=== PATIENT | male | born 1965 | race Caucasian/White ===

== ENCOUNTER 2019-01-07 16:05 | Inpatient (IN) | payer OTHER ==
[~2019-01-07] VITALS: Ht 193 cm; Wt 110.7 kg
--- OUTSIDE RECORDS SUMMARY | 2019-01-07 16:07 | XMS REPORT ---
Author Author [facility] Address Unknown Phone Unavailable Care Team Providers Care Maintenance Technician Name Role Phone ABEL CHAVIRA Unavailable Unavailable Payers Payer Name Policy Type Policy Number Effective Date Expiration Date Problems This patient has no known problems. Allergies, Adverse Reactions, Alerts Allergy Name Allergy Type Status Severity Reaction(s) Onset Date Inactive Date Treating Clinician Comments .BUFFERINE DA Active U 2017-11-24 00:00:00 .BUFFERINE DA Active U 2007-10-22 00:00:00 No Known Contrast Allergies DA Active U 2007-10-22 00:00:00 No Known Food Allergies DA Active U 2007-10-22 00:00:00 No Known Other Allergies DA Active U 2007-10-22 00:00:00 Medications This patient has no known medications. Results Test Description Test Time Test Comments Text Results Atomic Results Result Comments WRIST LEFT 2 VIEWS 2019-01-07 10:51:00 [facility] [address] [address] Patient Name: NISH CAZARES MR #: [id number] : 1965 Age/Sex: 53/M Req #: [id number] Adm Physician: Ordered by: ABEL CHAVIRA MD Report #: [id number] Location: [facility] Room/Bed: Procedure: [id number] DX/WRIST LEFT 2 VIEWS Exam Date: 01/07/19 Exam Time: 1015 REPORT STATUS: Signed EXAMINATION: WRIST LEFT 2 VIEWS INDICATION: Left wr ist sprain COMPARISON: None FINDINGS: No acute fracture. There is widening of the scapholunate interval to 5.3 mm. Alignment is otherwise anatomic. The soft tissues appear unremarkable. IMPRESSION: Scapholunate interval widening to 5.3 mm, consistent with scapholunate dissociation. Signed by: Luma Baeza MD on 01/07/2019 10:53 AM Dictated By: LUMA BAEZA MD 1053 Transcribed By: MICHAEL on 01/07/19 1053 COPY TO: ABEL CHAVIRA MD - XR SACRUM/COCCYX 2 + V 2019-01-03 13:38:00 Name: NISH CAZARES [facility] : 1965 Age/S:53 /M [address] [facility] Unit#:[id number] Loc: [place] [address] Phys: Jasen Chapa MD Dis Date: PHONE #: [phone] Status: REG FAX #: [phone] Exam Date: 01/03/2019 Reason: pain EXAMS: CPT CODE: [id number] XR SACRUM/COCCYX 2 + V [id number] REASON FOR EXAM: pain EXAM ORDER DATE: 01/03/2019 12:55 PM Ordering: Jasen Chapa MD Attending:Jasen Chapa MD Location: PROCEDURE: - XR SACRUM/COCCYX 2 + V FINDINGS: 3 views of the sacrum and coccyx were obtained. The osseous structures are unremarkable in size and shape. The sacroiliac joints are maintained. No evidence of fracture. IMPRESSION: Unremarkable sacrum and coccyx at 1338 Reported and signed by: Randall Samson M.D. CC: Juan Carlos Zambrano MD; Jasen Chapa MD Technologist: Nam HARLEY(R) Trnscrpt Data: 01/03/2019 (1338) t.[email or web address].VTL Orig Print D/T: S: 01/03/2019 (1601) PAGE 1 Signed Report - XR L-SPINE 2/3 VIEWS 2019-01-03 13:37:00 Name: NISH CAZARES [facility] : 1965 Age/S:53 /M [address] [facility] Unit#:[id number] Loc: [place] [address] Phys: Jasen Chapa MD Dis Date: PHONE #: [phone] Status: REG ER FAX #: [phone] Exam Date: 01/03/2019 Reason: pain EXAMS: CPT CODE: [id number] XR L-SPINE 2/3 VIEWS 19926 REASON FOR EXAM: pain EXAM ORDER DATE: 01/03/2019 12:55 PM Ordering: Jasen Chapa MD Attending:Jasen Chapa MD Location: PROCEDURE: - XR L-SPINE 2/3 VIEWS FINDINGS: 3 views of the lumbar spine were obtained. There is normal alignment of the lumbar spine. The vertebral bodies are unremarkable in size and shape. The disc spaces are maintained. No evidence of fracture. IMPRESSION: Unremarkable lumbar spine at 1337 Reported and signed by: Randall Samson M.D. CC: Juan Carlos Zambrano MD; Jasen Chapa MD Technologist: Nam HARLEY(R) Trnscrpt Data: 01/03/2019 (1337) [email or web address].VTL Orig Print D/T: S: 01/03/2019 (0088) PAGE 1 Signed Report
[2019-01-07] MEDS ORDERED: SODIUM CHLORIDE 0.9% 1000ML 1,000 ML IV SCH (16:30)
[2019-01-07] MEDS ORDERED: PIPER-TAZ 3.375 GM 50 ML ONE (16:37)
[2019-01-07] MEDS ORDERED: SODIUM CHLORIDE 0.9% 1000ML 1,000 ML ONE ×2 (16:37→19:16)
[2019-01-07] MEDS ORDERED: IOPAMIDOL 370 MG/ML 200 ML INFUS..BTL INJ ONE (16:40)
[2019-01-07] MEDS ORDERED: SODIUM CHLORIDE 0.9% 50ML 50 ML ONE (16:40)
[2019-01-07] MEDS: PIPER-TAZ 3.375 GM 50 ML IV SCH ×2 (16:43→22:30)
[2019-01-07] MEDS ORDERED: MORPHINE SULFATE 2 MG/ML SYR 1ML IV PRN (17:00)
[2019-01-07] MEDS ORDERED: MORPHINE SULFATE INJ 4 MG/ML INJ 1ML IV PRN (17:00)
--- NOTE | 2019-01-07 18:15 | Diagnostic Imaging Report ---
EXAM: FOOT 3 VIEW LT - HOPD DATE: 01/07/2019 12:00 AM INDICATION: Cellulitis, swelling ^[id number] ^1733 COMPARISON: None FINDINGS: 3 views of the left foot show no displaced fracture or dislocation. No destructive lesion or bony erosion is seen. There is apparent mild soft tissue swelling about the foot. A plantar calcaneal bone spur is seen. IMPRESSION: No acute bony abnormality. Signed by: Dr. Julien Davis M.D. on 01/07/2019 6:12 PM
--- NOTE | 2019-01-07 18:31 | Diagnostic Imaging Report ---
EXAM: CT Abdomen and Pelvis WITH contrast INDICATION: Burn to buttocks, fever ^[id number] ^1735 COMPARISON: None. TECHNIQUE: Abdomen and pelvis were scanned utilizing a multidetector helical scanner from the lung base to the pubic symphysis after administration of IV contrast. Coronal and sagittal reformations were obtained. Routine protocol was performed. Scan was performed when during portal venous phase. Dose modulation, iterative reconstruction, and/or weight based adjustment of the mA/kV was utilized to reduce the radiation dose to as low as reasonably achievable. IV CONTRAST: 100 mL of Isovue-370 ORAL CONTRAST: None RADIATION DOSE: Total DLP: 886.32 mGy*cm Estimated effective dose: (DLP x 0.015 x size factor) mSv COMPLICATIONS: None FINDINGS: LINES and TUBES: None. LOWER THORAX: Lung bases clear. Heart size normal. HEPATOBILIARY: Liver is partially obscured by artifact produced by the right arm at the patient's side. No focal hepatic lesions. No biliary ductal dilation. GALLBLADDER: No radio-opaque stones or sludge. No wall thickening. SPLEEN: No splenomegaly. PANCREAS: No focal masses or ductal dilatation. ADRENALS: No adrenal nodules KIDNEYS/URETERS: Kidneys enhance symmetrically. No hydronephrosis. No cystic or solid mass lesions. No stones. GI TRACT: No abnormal distention, wall thickening, or evidence of bowel obstruction. There is a moderately large volume of retained stool throughout the colon which, while nonspecific, may be seen with constipation. The appendix is not well seen but there is no evidence for right lower quadrant inflammatory change to suggest appendicitis. PELVIC ORGANS/BLADDER: Urinary bladder has an unremarkable appearance. The prostate is prominent measuring 6.7 cm diameter. No discrete abnormal mass or fluid collection is seen in the pelvis. LYMPH NODES: No dominant lymph node mass is seen in the abdomen, retroperitoneum or pelvis. There is a mildly prominent 1.1 cm left para-aortic node (image 59) and another 1.2 cm left para-aortic node (image 48). There are additional scattered subcentimeter nodes in the para-aortic area and in the mesentery. VESSELS: No aneurysm or dissection of the abdominal aorta. There is a likely accessory renal artery on the right. Celiac, SMA and MELVA are patent. IVC and portal system appear unremarkable. PERITONEUM / RETROPERITONEUM: No pneumoperitoneum or ascites. There is haziness in the central mesentery which more likely represents artifact from the adjacent arm rather than mesenteric edema. BONES: No acute or suspicious bony lesions. There are degenerative changes in the lumbar spine with osteophytes and disc space narrowing at several levels. SOFT TISSUES: Superficial surrounding soft tissue shows extensive subcutaneous edema in the left gluteal area. There are ill-defined lucencies in the adjacent gluteus mazin musculature (image 103). IMPRESSION: 1. There is subcutaneous stranding and edema in the left gluteal area. Ill-defined lucencies are seen in the adjacent gluteus mazin musculature which also appears edematous. Potentially this may represent thermal injury based on history provided, although lucencies in the musculature may also represent phlegmonous infection in the proper clinical setting. A discrete or well-defined drainable fluid collection is not seen. 2. Mildly prominent para-aortic and mesenteric lymph nodes which may be reactive. Correlation with history for underlying related pathology is also suggested. 3. Enlargement of the prostate. Staff: Ryan Signed by: Dr. Julien Davis M.D. on 01/07/2019 6:28 PM
--- NOTE | 2019-01-07 18:44 | NUR ---
[facility] CALLED FOR PT. TRANSPORT TO [facility]
[2019-01-07] MEDS ORDERED: VANCOMYCIN 1GM/NS 250 ML 250 ML ONE (19:16)
[2019-01-07 19:46] VITALS: BP 125/55
--- NOTE | 2019-01-07 19:50 | NUR ---
Patient was brought from free standing Er in a stretcher with c/o left foot& knee red, swollen and warm.aaox3.assessment done.no resp.distress.iv to left ac is patent.iv fluid infusing.oriented to the unit.bed locked and in lowest position.phone and call light within reach.instructed to call for assistance as needed.
[2019-01-07 20:00] VITALS: BP 125/55
[2019-01-07] MEDS: SODIUM CHLORIDE 0.9% 1000ML 1,000 ML IV SCH (20:15)
[2019-01-07] MEDS: VANCOMYCIN 1GM/NS 250 ML 250 ML IV SCH (20:15)
[2019-01-07 20:43] VITALS: BP 125/55
[2019-01-08] VITALS (8 sets, daily range): BP systolic 102–140; BP diastolic 58–67
--- NOTE | 2019-01-08 01:00 | NUR ---
Pt refused to draw blood right now.stated that "draw later ".voided in the bed.took shower.keep monitor the pt.
[2019-01-08] MEDS: SODIUM CHLORIDE 0.9% 1000ML 1,000 ML IV SCH ×3 (04:29→20:56)
[2019-01-08] MEDS: PIPER-TAZ 3.375 GM 50 ML IV SCH ×4 (05:47→17:00)
[2019-01-08 06:10] LABS: BASOPHILS % 0.2 % (0.0-1.0); EOSINOPHILS # (AUTO) 0.2 (0.0-0.4); HEMATOCRIT 26.9 % (38.2-49.6); HEMOGLOBIN 9.1 g/dL (14.0-18.0); LYMPHOCYTES # (AUTO) 0.9 (1.0-3.2); LYMPHOCYTES % 5.7 % (18.0-39.1); MEAN CORPUSCULAR HEMOGLOBIN 27.2 pg (28-32); MEAN CORPUSCULAR HGB CONC 33.8 g/dL (31-35); MEAN CORPUSCULAR VOLUME 80.3 fL (81-99); MONOCYTES # (AUTO) 0.7 (0.2-0.8); MONOCYTES % 4.4 % (4.4-11.3); NEUTROPHILS # (AUTO) 13.8 (2.1-6.9); NEUTROPHILS % 84.4 % (38.7-80.0); PLATELET COUNT 307 x10e3/uL (140-360); RED BLOOD COUNT 3.35 x10e6/uL (4.3-5.7); RED CELL DISTRIBUTION WIDTH 17.1 % (11.7-14.4)
[2019-01-08 06:33] LABS: ANION GAP 12.6 mmol/L (8-16); BLOOD UREA NITROGEN 27 mg/dL (7-26); BUN/CREATININE RATIO 22 (6-25); CALCIUM 7.9 mg/dL (8.4-10.2); CARBON DIOXIDE 26 mmol/L (22-29); CHLORIDE 99 mmol/L (98-107); CREATININE, SERUM 1.24 mg/dL (0.72-1.25); EST GLOMERULAR FILTRATION RATE > 60 ML/MIN (60-); GLUCOSE 96 mg/dL (74-118); POTASSIUM 3.6 mmol/L (3.5-5.1); SODIUM 134 mmol/L (136-145)
--- NOTE | 2019-01-08 06:50 | NUR ---
Bed side shift report given to the oncoming Rn.stable condition.
--- NOTE | 2019-01-08 06:50 | NUR ---
BEDSIDE SHIFT REPORT RECEIVED FROM OFF GOING NURSE. PATIENT IS RESTING IN BED. NO ACUTE DISTRESS NOTED. CALL LIGHT WITHIN REACH. BED IN THE LOWEST POSITION.
[2019-01-08] MEDS ORDERED: ACETAMINOPHEN 325 MG TAB PO PRN (07:00)
[2019-01-08] MEDS: VANCOMYCIN 1GM/NS 250 ML 250 ML IV SCH ×2 (08:07→20:21)
--- NOTE | 2019-01-08 11:40 | History and Physical ---
CHIEF COMPLAINT: Fever, chills, and sweats. HISTORY OF PRESENT ILLNESS: This is a 53-year-old white man, who recently was diagnosed with left buttock cellulitis. The patient apparently inadvertently burnt his left buttock area with a heating pad a few days prior to admission. The patient was seen in his primary care physician's office one day prior to admission and was diagnosed as left buttock cellulitis, and during that visit, he was administered 1 g of ceftriaxone and started on oral Keflex. On the day of admission, the patient was diaphoretic and was experiencing shaking chills. In the emergency room on this visit, the patient was found to have white blood cell count of 19,800. His BUN and creatinine were slightly elevated at 24 and 1.5 respectively. The patient underwent a CT of the abdomen and pelvis that revealed subcutaneous stranding edema in the left gluteal area consistent with cellulitis, but no obvious well-defined drainable fluid collection, such as an abscess was appreciated. The patient was admitted for further evaluation and treatment. REVIEW OF SYSTEMS: GENERAL: Fever and chills last few days. Weight is stable. No confusion. HEENT: No headaches. No vision changes. CARDIOVASCULAR/RESPIRATORY: No chest pain. No shortness of breath or cough. GI: No nausea, vomiting, or constipation. : No UTI or BPH. NEUROMUSCULAR: Complains of intense pain in his left buttock, left foot, and left wrist area. PAST MEDICAL HISTORY: Speech impediment with mild developmental delay. FAMILY HISTORY: Father had congestive heart failure and dementia. ALLERGIES: BUFFERIN. MEDICATIONS: 1. Keflex 500 mg t.i.d. (the patient to start taking his medication). 2. Silvadene cream applied to the left buttock burn area twice a day (the patient to start taking his medication). PAST SURGICAL HISTORY: None. SOCIAL HISTORY: This man is single. He lives in apartment alone according to his mother. He works at a local grocery store. Once again, the patient has a speech impediment with some developmental delay. No history of tobacco or alcohol use. PHYSICAL EXAMINATION: GENERAL: He is awake, alert, and fully oriented. He is very pleasant on exam. VITAL SIGNS: Height 6 feet 4 inches, weight is 220 pounds, BMI 26. Blood pressure is 102/58, pulse is 95, respiratory rate is 18, temperature is 97.9, oxygen 93% on room air. INTEGUMENT: Skin is warm and dry. No pallor, jaundice, or diaphoresis. The patient has a second-degree burn in the left inner buttock area inside the gluteal cleft. He has surrounding erythema that in covers the left gluteal area. The patient also has erythema in the bilateral patellar area. Left foot, the left foot is also swollen and erythematous. The left wrist is also swollen, tender with limited range of motion (the patient apparently was found to have dislocated left wrist confirmed by outpatient x-rays). NEUROLOGIC: Intact. DIAGNOSES: 1. Sepsis secondary to left buttock cellulitis. 2. Acute renal insufficiency secondary to acute tubular necrosis. 3. Left wrist dislocation. PLAN: 1. Follow blood cultures. 2. Intravenous fluids. 3. Intravenous antibiotics. 4. Follow white blood cell count. 5. We will start enoxaparin for deep venous thrombosis prophylaxis. 6. The patient will follow up with local orthopedic surgeon in regard to his left wrist dislocation. I spent 45 minutes in the care of this patient. MD LIBIA Lewis/OFELIA /[id number]
--- NOTE | 2019-01-08 13:37 | Consultation ---
DATE OF CONSULTATION: 01/08/2019 CHIEF COMPLAINT: Left wrist pain. HISTORY OF PRESENT ILLNESS: The patient is a 53-year-old gentleman, who states of about 3 or 4 weeks ago, he strained his left wrist at work. He states a milk container fell and he tried to catch it. It either hit or twisted his wrist. He noted some pain in his wrist. He did not have any pain prior to this incident. He states that the pain started about a week after the incident. He was seen earlier this week and had some outpatient x-rays done. He coincidentally developed some cellulitis in his foot and gluteal region that required admission to the hospital. Orthopedic consultation regarding his wrist was requested while he is here in the hospital. PAST MEDICAL HISTORY: The patient denies medical problems. PAST SURGICAL HISTORY: He denies he has ever had surgery. ALLERGIES: BUFFERIN AND ASPIRIN, WHICH CAUSES GI DISCOMFORT. MEDICATIONS: The patient cannot state exactly what medicines he takes, but he says he takes a couple tablets. 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 He is single and has no children. He does not smoke, but he socially drinks. When asked what he does for fun, he says watch TV. PHYSICAL EXAMINATION: GENERAL: He is awake, alert, and oriented. He is in no distress. EXTREMITIES: His left wrist and hand are mildly swollen. There is tenderness over the wrist. He has normal sensation. Capillary refill is normal. He has decreased range of motion in the wrist with some discomfort. He can make a complete clenched fist. LABORATORY STUDIES: X-rays show a scapholunate dissociation. IMPRESSION: Scapholunate dissociation of the left wrist. The findings were explained to the patient. This is approximately 3 or 4 weeks old. This also occurred at work. This is typically treated with surgery by dedicated hand specialist. The patient will need to get over the cellulitis and returned to the [employer] in order to file a workmen's compensation claim. Once that is done, he can get incorporated into their network to see a dedicated hand specialist. This is a type of injury that is outside my area of orthopedic expertise. I offered to place him into a splint for comfort. He says it does not bother him enough to justify putting it in a splint. Thank you for the consultation. Daniel Benedict MD DR/OFELIA /[id number]
[2019-01-08] MEDS: ENOXAPARIN SOD INJ 40 MG/0.4 ML SYR SC SCH (17:00)
--- NOTE | 2019-01-08 19:10 | NUR ---
BEDSIDE SHIFT REPORT GIVEN TO ONCOMING NURSE. PATIENT IS RESTING IN BED. NO ACUTE DISTRESS NOTED. CALL LIGHT WITHIN REACH. BED IN THE LOWEST POSITION. BED ALARM ON.
--- NOTE | 2019-01-08 19:15 | NUR ---
Bed side shift report taken from morning Elena in the bed.stable condition.
[2019-01-08] MEDS: ZOLPIDEM TARTRATE 10 MG TAB PO PRN (22:22)
[2019-01-09] VITALS (7 sets, daily range): BP systolic 116–163; BP diastolic 52–78
[2019-01-09] MEDS: PIPER-TAZ 3.375 GM 50 ML IV SCH ×4 (00:12→18:00)
--- NOTE | 2019-01-09 02:43 | NUR ---
Resting in the bed.no pain voiced.iv fluid infusing.no resp.distress.foot end of bed is elevated.bed locked and in lowest position.phone and call light within reach.instructed to call for assistance as needed.
[2019-01-09] MEDS: SODIUM CHLORIDE 0.9% 1000ML 1,000 ML IV SCH (04:18)
[2019-01-09 06:53] LABS: BASOPHILS # (AUTO) 0.1 (0.0-0.1); BASOPHILS % 0.3 % (0.0-1.0); EOSINOPHILS # (AUTO) 0.1 (0.0-0.4); HEMATOCRIT 28.2 % (38.2-49.6); LYMPHOCYTES % 6.8 % (18.0-39.1); MEAN CORPUSCULAR HEMOGLOBIN 26.4 pg (28-32); MEAN CORPUSCULAR HGB CONC 31.9 g/dL (31-35); MEAN CORPUSCULAR VOLUME 82.7 fL (81-99); MONOCYTES # (AUTO) 0.9 (0.2-0.8); MONOCYTES % 5.9 % (4.4-11.3); NEUTROPHILS # (AUTO) 11.8 (2.1-6.9); NEUTROPHILS % 81.4 % (38.7-80.0); PLATELET COUNT 345 x10e3/uL (140-360); RED BLOOD COUNT 3.41 x10e6/uL (4.3-5.7); RED CELL DISTRIBUTION WIDTH 17.3 % (11.7-14.4)
--- NOTE | 2019-01-09 06:55 | NUR ---
Bed side shift report given to oncoming Rn.stable condition.
[2019-01-09 07:15] LABS: ALANINE AMINOTRANSFERASE 192 IU/L (0-55); ALBUMIN 1.3 g/dL (3.5-5.0); ALBUMIN/GLOBULIN RATIO 0.3 (0.8-2.0); ALKALINE PHOSPHATASE 193 IU/L (40-150); BLOOD UREA NITROGEN 19 mg/dL (7-26); BUN/CREATININE RATIO 19 (6-25); CALCIUM 7.8 mg/dL (8.4-10.2); CARBON DIOXIDE 29 mmol/L (22-29); CHLORIDE 101 mmol/L (98-107); CREATININE, SERUM 0.99 mg/dL (0.72-1.25); EST GLOMERULAR FILTRATION RATE > 60 ML/MIN (60-); GLUCOSE 98 mg/dL (74-118); SODIUM 137 mmol/L (136-145)
--- NOTE | 2019-01-09 07:30 | NUR ---
PT UP IN BED SLEEPING,NO S/S DISCOMFORT,REDNESS NOTED TO BI-LATERAL KNEES.
[2019-01-09 08:09] LABS: BAND NEUTROPHILS % (MANUAL) 2 %; EOSINOPHILS % (MANUAL) 1 % (0-7); LYMPHOCYTES % (MANUAL) 8 % (19-48); MONOCYTES % (MANUAL) 6 % (3.4-9.0); NEUTROPHILS % (MANUAL) 83 % (40-74)
[2019-01-09 08:10] LABS: ANISOCYTOSIS SLIGHT; MICROCYTOSIS SLIGHT; POIKILOCYTOSIS SLIGHT
[2019-01-09 08:11] LABS: PLATELET ESTIMATE ADEQUATE; RBC MORPHOLOGY COMMENT ABNORMAL; TEAR DROP CELLS FEW
[2019-01-09 08:12] LABS: PLATELET MORPHOLOGY COMMENT NORMAL
[2019-01-09] MEDS: VANCOMYCIN 1GM/NS 250 ML 250 ML IV SCH ×2 (08:23→19:48)
--- NOTE | 2019-01-09 08:30 | NUR ---
DR CHAVIRA HERE ODRES WRITEN
--- NOTE | 2019-01-09 12:14 | Diagnostic Imaging Report ---
EXAM: Right upper quadrant abdominal ultrasound INDICATION: Elevated liver enzymes COMPARISON: CT abdomen and pelvis of 01/07/2019 TECHNIQUE: Transverse and longitudinal images of the right upper quadrant abdomen were obtained FINDINGS: Liver: Size: 17.3 cm in the right midclavicular line, normal Appearance: Normal echogenicity, smooth contour Mass: No focal masses Gallbladder: No gallbladder distension, pericholecystic fluid, wall thickening, stone, or reported sonographic Agosto's sign. Gallbladder wall measures 2 mm Bile Ducts: Intrahepatic Ducts: No dilatation Extrahepatic Ducts: Common bile duct measures 4 mm, no dilatation Pancreas: Visualized portions of the pancreatic head, neck and proximal body are normal. Kidney: The right kidney measures 11.1 cm without evidence of hydronephrosis or stone. Vessels: Aorta: Visualized portions are normal Inferior Vena Cava: Visualized portions are normal Main Portal Vein: 1.0 cm, normal size with hepatopetal flow. Free Fluid: No ascites or pleural effusion IMPRESSION: Unremarkable right upper quadrant ultrasound. Signed by: Aleida Dixon MD on 01/09/2019 12:11 PM
--- NOTE | 2019-01-09 13:00 | NUR ---
PT ASSITED UP TO CHAIR TOLERATED WELL UNSTEADY GAIT.
[2019-01-09] MEDS: ACETAMINOPHEN 325 MG TAB PO PRN (16:00)
--- NOTE | 2019-01-09 16:00 | NUR ---
TEMP 101.7 MEDICATED.
[2019-01-09] MEDS: ENOXAPARIN SOD INJ 40 MG/0.4 ML SYR SC SCH (17:00)
--- NOTE | 2019-01-09 17:54 | NUR ---
PT IN BED RRSTING DENIES PAIN ,TEMP 100.6
--- NOTE | 2019-01-09 19:04 | NUR ---
Received change of shift report from AM nurse.
[2019-01-09] MEDS: HYDROMORPHONE 1MG/1ML INJ IV PRN (21:49)
[2019-01-09] MEDS: ONDANSETRON HCL INJ 2MG/ML 2ML 2 MG/ML VIAL IV PRN (21:50)
--- NOTE | 2019-01-09 22:03 | NUR ---
Patient c/o pain -5-6. Given pain meds as ordered by MD. Patient also received nausea meds. Continue monitor.
--- NOTE | 2019-01-09 22:07 | NUR ---
Bed alarm on and siderails up x2.
[2019-01-10] VITALS (7 sets, daily range): BP systolic 118–145; BP diastolic 57–69
--- NOTE | 2019-01-10 05:30 | NUR ---
Patient resting quitly at this time. Continue monitor.
[2019-01-10] MEDS: PIPER-TAZ 3.375 GM 50 ML IV SCH ×4 (05:37→18:00)
[2019-01-10 05:54] LABS: BASOPHILS % 0.3 % (0.0-1.0); EOSINOPHILS # (AUTO) 0.1 (0.0-0.4); EOSINOPHILS % 0.6 % (0.0-6.0); HEMATOCRIT 27.3 % (38.2-49.6); HEMOGLOBIN 8.9 g/dL (14.0-18.0); LYMPHOCYTES # (AUTO) 0.8 (1.0-3.2); LYMPHOCYTES % 5.5 % (18.0-39.1); MEAN CORPUSCULAR HEMOGLOBIN 27.1 pg (28-32); MEAN CORPUSCULAR HGB CONC 32.6 g/dL (31-35); MONOCYTES # (AUTO) 0.7 (0.2-0.8); MONOCYTES % 5.3 % (4.4-11.3); NEUTROPHILS % 85.4 % (38.7-80.0); PLATELET COUNT 362 x10e3/uL (140-360); RED BLOOD COUNT 3.29 x10e6/uL (4.3-5.7); RED CELL DISTRIBUTION WIDTH 17.2 % (11.7-14.4)
[2019-01-10 06:18] LABS: ALANINE AMINOTRANSFERASE 181 IU/L (0-55); ALBUMIN 1.3 g/dL (3.5-5.0); ALBUMIN/GLOBULIN RATIO 0.3 (0.8-2.0); ALKALINE PHOSPHATASE 191 IU/L (40-150); ANION GAP 12.2 mmol/L (8-16); BLOOD UREA NITROGEN 15 mg/dL (7-26); BUN/CREATININE RATIO 17 (6-25); CALCIUM 7.8 mg/dL (8.4-10.2); CARBON DIOXIDE 26 mmol/L (22-29); CHLORIDE 102 mmol/L (98-107); CREATININE, SERUM 0.89 mg/dL (0.72-1.25); EST GLOMERULAR FILTRATION RATE > 60 ML/MIN (60-); GLUCOSE 104 mg/dL (74-118); POTASSIUM 4.2 mmol/L (3.5-5.1); SODIUM 136 mmol/L (136-145)
--- NOTE | 2019-01-10 07:30 | NUR ---
PT UP IN BED NO DISTRESS NOTED,DENIES PAIN
[2019-01-10] MEDS: VANCOMYCIN 1GM/NS 250 ML 250 ML IV SCH ×2 (08:30→20:55)
--- NOTE | 2019-01-10 08:30 | NUR ---
PT ASSISTED UP TO CHAIR MIN ASSIST,
--- NOTE | 2019-01-10 09:15 | NUR ---
PT ASSISTED BACK TO BED.
[2019-01-10] MEDS: HYDROMORPHONE 1MG/1ML INJ IV PRN ×2 (11:51→22:23)
[2019-01-10 13:22] LABS: BAND NEUTROPHILS % (MANUAL) 6 %
[2019-01-10 13:23] LABS: LYMPHOCYTES % (MANUAL) 5 % (19-48); MONOCYTES % (MANUAL) 5 % (3.4-9.0); NEUTROPHILS % (MANUAL) 84 % (40-74); PLATELET ESTIMATE SLIGHTLY INCREASED; PLATELET MORPHOLOGY COMMENT NORMAL
[2019-01-10 13:24] LABS: RBC MORPHOLOGY COMMENT NORMAL
[2019-01-10] MEDS: ACETAMINOPHEN 325 MG TAB PO PRN (16:03)
[2019-01-10] MEDS: BALSAM PERU/CASTOR OIL 60 GM OINT...G. TP SCH (17:00)
[2019-01-10] MEDS: ENOXAPARIN SOD INJ 40 MG/0.4 ML SYR SC SCH (17:00)
--- NOTE | 2019-01-10 17:40 | NUR ---
DR HAYWOOD HERE ORDERS WRITTEN ,PT DENIES PAIN.
--- NOTE | 2019-01-10 20:23 | NUR ---
Received change of shift report from nurse.
--- NOTE | 2019-01-10 22:11 | NUR ---
Patient off the floor to CT via bed.
[2019-01-10] MEDS: ONDANSETRON HCL INJ 2MG/ML 2ML 2 MG/ML VIAL IV PRN (22:23)
--- NOTE | 2019-01-10 23:07 | Consultation ---
DATE OF CONSULTATION: 01/10/2019 REASON FOR CONSULTATION: 1. Staph aureus bacteremia. 2. Multiple joint inflammation. HISTORY OF PRESENT ILLNESS: This patient who is a 53-year-old white male, comes in according to his mother, who he lives with. She said that 10 days ago or so was trying to bend down, he had severe pain in his buttock area. He went to the doctor almost every day since then because of fever and chills. One doctor thought he was having flu. He was given some antibiotic, but now he is having redness and swelling in his left knee, redness and swelling in the right foot. He cannot move his right arm, so he came here. The patient is currently lying in bed. He is having severe pain in the buttock area. The patient had a CT of abdomen and pelvis that showed subcutaneous stranding edema of the left gluteal area consistent with cellulitis, but there is no abscess. PAST MEDICAL HISTORY: He has speech and mild developmental delay. PAST SURGICAL HISTORY: He denies. ALLERGIES: NKA. SOCIAL HISTORY: There is no smoking, drug abuse, or alcohol abuse. He works with [employer]. REVIEW OF SYSTEMS: Otherwise is unremarkable. PHYSICAL EXAMINATION: GENERAL: He is currently alert, oriented, does not seem to be in acute distress. VITAL SIGNS: Stable, currently afebrile. HEENT: He is not icteric. NECK: Supple. CHEST: Clear bilateral. HEART: S1 and S2. No murmur. ABDOMEN: Soft. Bowel sounds present. No tenderness. EXTREMITIES: There is erythema and edema involving his left foot. There is also some effusion noted in the right knee and there is tenderness in the right shoulder. LABORATORY DATA: White count on admission was 16.41, hemoglobin 9.1. Sodium 136, potassium 4.2, creatinine 0.89. PHYSICAL EXAMINATION: GENERAL: Currently alert, oriented, follows commands, does not seem to be in acute distress. VITAL SIGNS: Stable, currently afebrile when he first came at 100.7. HEENT: Normocephalic. NECK: Supple. No JVD. No lymphadenopathy. No thyromegaly. CHEST: Clear bilateral. COR: S1, S2. No S3, S4, or murmur. ABDOMEN: Soft. IMPRESSION: 1. Sepsis, on admission. 2. Staphylococcus aureus bacteremia, rule out endocarditis. 3. Rule out infection with multiple septic emboli. 4. Inflammation of the left knee. Concerned about infection or inflammation of the right shoulder severe pain. Concerned about spinal inflammation from the buttock cellulitis. RECOMMENDATIONS: We will continue vancomycin. We will increase to 1.5 q.12. Can discontinue Zosyn. Obtain echocardiogram. Initially, I am told this is negative for endocarditis. Recheck blood cultures. Obtain sedimentation rate and C-reactive protein. Would need extended course of IV antibiotic. Recommend MRI of the spinal area, CT of abdomen and pelvis, CT of the buttock area, MRI of the left foot, MRI of the right knee, MRI of the right shoulder. Discussed with Internal Medicine. Discussed with family. He would need a PICC line and long-term antibiotic. MD JACE Joy/OFELIA /[id number]
[2019-01-11] VITALS (7 sets, daily range): BP systolic 118–126; BP diastolic 58–63
[2019-01-11] MEDS: ONDANSETRON HCL INJ 2MG/ML 2ML 2 MG/ML VIAL IV PRN ×2 (04:48→20:13)
[2019-01-11] MEDS: HYDROMORPHONE 1MG/1ML INJ IV PRN ×3 (04:49→20:13)
[2019-01-11] MEDS: PIPER-TAZ 3.375 GM 50 ML IV SCH ×4 (05:50→18:01)
[2019-01-11] MEDS ORDERED: SODIUM CHLORIDE 0.9% 50ML 50 ML ONE (05:53)
[2019-01-11] MEDS ORDERED: IOPAMIDOL 370 MG/ML 200 ML INFUS..BTL INJ ONE (05:54)
[2019-01-11 07:11] LABS: BASOPHILS % 0.3 % (0.0-1.0); EOSINOPHILS % 0.3 % (0.0-6.0); HEMATOCRIT 28.6 % (38.2-49.6); HEMOGLOBIN 9.1 g/dL (14.0-18.0); LYMPHOCYTES # (AUTO) 0.6 (1.0-3.2); LYMPHOCYTES % 4.8 % (18.0-39.1); MEAN CORPUSCULAR HEMOGLOBIN 26.8 pg (28-32); MEAN CORPUSCULAR HGB CONC 31.8 g/dL (31-35); MEAN CORPUSCULAR VOLUME 84.1 fL (81-99); MONOCYTES # (AUTO) 0.7 (0.2-0.8); MONOCYTES % 5.1 % (4.4-11.3); NEUTROPHILS # (AUTO) 11.7 (2.1-6.9); NEUTROPHILS % 87.1 % (38.7-80.0); PLATELET COUNT 366 x10e3/uL (140-360); RED CELL DISTRIBUTION WIDTH 17.2 % (11.7-14.4)
--- NOTE | 2019-01-11 07:28 | Diagnostic Imaging Report ---
EXAM: CT Abdomen and Pelvis WITH contrast CT Sacrum/Coccyx WITH contrast INDICATION: Infection, abscess, swelling, pain COMPARISON: None. TECHNIQUE: Abdomen and pelvis were scanned utilizing a multidetector helical scanner from the lung base to the pubic symphysis after administration of IV contrast. Coronal and sagittal reformations were obtained. Routine protocol was performed. Scan was performed when during portal venous phase. IV CONTRAST: 100 mL of Isovue 370 ORAL CONTRAST: None COMPLICATIONS: None RADIATION DOSE: Total DLP: 962 mGy*cm Estimated effective dose: (DLP x 0.015 x size factor) mSv CTDIvol has been reviewed. It is below the limits set by the Radiation Protocol Committee (RPC). Dose modulation, iterative reconstruction, and/or weight based adjustment of the mA/kV was utilized to reduce the radiation dose to as low as reasonably achievable. FINDINGS: LINES and TUBES: None. LOWER THORAX: Asymmetric right atrial enlargement. Trace pleural effusions. HEPATOBILIARY: No focal hepatic lesions. No biliary ductal dilation. GALLBLADDER: No radio-opaque stones or sludge. No wall thickening. SPLEEN: No splenomegaly. PANCREAS: No focal masses or ductal dilatation. ADRENALS: No adrenal nodules KIDNEYS/URETERS: Kidneys enhance symmetrically. No hydronephrosis. No cystic or solid mass lesions. No stones. GI TRACT: No abnormal distention, wall thickening, or evidence of bowel obstruction. Appendix is normal. PELVIC ORGANS/BLADDER: Unremarkable. LYMPH NODES: No lymphadenopathy. VESSELS: Unremarkable. PERITONEUM / RETROPERITONEUM: Multiple fluid densities in the bilateral psoas muscles, largest measures 2.3 cm. A 3 cm fluid collection inferior aspect of the right renal veins. BONES: Unremarkable. SOFT TISSUES: Focal stranding in the right lower lateral chest subcutaneous extends inferiorly to the right thigh. Subcutaneous fat stranding in the medial right proximal arm. IMPRESSION: 1. Multiple bilateral psoas and left gluteal abscesses/myositis. Prevertebral inflammation anterior to L2-L3 disc space, and small fluid collections in the upper infrarenal retroperitoneum. Recommend lumbar spine MRI with contrast. 2. Multiple scattered subcutaneous inflammatory changes. 3. Constellation of findings concerning for septic emboli possibly due to infected tricuspid valve, as there is asymmetric right atrial enlargement. 4. Trace pleural effusions. Signed by: Gray Marie DO on 01/11/2019 7:25 AM
--- NOTE | 2019-01-11 07:30 | NUR ---
PT IN BED AWAKE DENIES PAIN,BI LATERAL KNEES SWOLEN AND RED,RT ARM PAINFUL TO MOVE.
[2019-01-11 07:47] LABS: ALANINE AMINOTRANSFERASE 124 IU/L (0-55); ALBUMIN 1.3 g/dL (3.5-5.0); ALBUMIN/GLOBULIN RATIO 0.3 (0.8-2.0); ALKALINE PHOSPHATASE 162 IU/L (40-150); ANION GAP 11.5 mmol/L (8-16); BLOOD UREA NITROGEN 13 mg/dL (7-26); BUN/CREATININE RATIO 16 (6-25); CALCIUM 7.8 mg/dL (8.4-10.2); CARBON DIOXIDE 27 mmol/L (22-29); CHLORIDE 100 mmol/L (98-107); CREATININE, SERUM 0.82 mg/dL (0.72-1.25); EST GLOMERULAR FILTRATION RATE > 60 ML/MIN (60-); GLUCOSE 100 mg/dL (74-118); POTASSIUM 4.5 mmol/L (3.5-5.1); SODIUM 134 mmol/L (136-145)
[2019-01-11] MEDS: BALSAM PERU/CASTOR OIL 60 GM OINT...G. TP SCH ×2 (09:00→18:01)
[2019-01-11] MEDS: VANCOMYCIN 1GM/NS 250 ML 250 ML IV SCH ×2 (09:00→21:10)
--- NOTE | 2019-01-11 12:30 | NUR ---
DR CHUN HERE NO NEW ORDERS
--- NOTE | 2019-01-11 13:25 | NUR ---
Visit made by the Spiritual Care Department Pastoral Visitor, Juan Carlos Dia. PV provided pastoral presence, prayer, communion, hospitality, and supportive listening. Pastoral Visitor informed pt/family of the scope of Chief Safety Officer Services and availability. TITI KENNEDY Calender Operator Spiritual Care Department O: [phone] Pager: [phone] ([phone] number calling from)
--- NOTE | 2019-01-11 15:55 | Consultation ---
DATE OF CONSULTATION: 01/11/2019 REASON FOR CONSULTATION: Gluteal abscess, evaluation for possible incision and drainage. HISTORY OF PRESENT ILLNESS: The patient is a mildly mentally-handicapped 53-year-old male who presents to the hospital complaining of fever and chills and lower back pain since several days prior to admission. The patient workup so far has revealed endocarditis with multiple septic emboli. CT scan reveals multiple abscess of the psoas and left gluteal region. Subsequently, he has also developed erythema and swelling of the left knee joint area and as well as the left foot. ID and orthopedics have already been consulted. The patient denies any major medical problems, any previous surgeries. He has not taken any since. ALLERGIES: NO KNOWN ALLERGIES. PHYSICAL EXAMINATION: GENERAL: Reveals a 53-year-old male, awake, alert. BACK: Examination of the buttocks reveals an area of mild erythema and induration over the left gluteus, but there is no palpable fluctuant area. There is erythema and tenderness in the left knee region and foot. ASSESSMENT: Endocarditis with multiple septic emboli. At this point, the abscesses of the left gluteal region are multiple. They are small. I do not believe that this is something that can be tackled surgically. At this point, I think the best course of action is to continue intravenous antibiotics and is at some point he develops a well-localized collection in the left gluteal area, then consideration should be given to drainage. Interventional radiology consultation is pending. Thank you MD PRISCILLA Hudson/OFELIA /[id number] JUAN
[2019-01-11] MEDS: ENOXAPARIN SOD INJ 40 MG/0.4 ML SYR SC SCH (18:01)
--- NOTE | 2019-01-11 18:03 | NUR ---
PT IN BED RESTING NO DISTRESS NOTED.DENIES PAIN
--- NOTE | 2019-01-11 20:32 | NUR ---
Vanco trough drawn. Sent to lab.
[2019-01-11] MEDS: ZOLPIDEM TARTRATE 10 MG TAB PO PRN (22:08)
--- NOTE | 2019-01-11 22:28 | NUR ---
Received change of shift report from AM nurse. Walking rounds completed.
[2019-01-12] VITALS (8 sets, daily range): BP systolic 109–135; BP diastolic 52–73
[2019-01-12] MEDS: PIPER-TAZ 3.375 GM 50 ML IV SCH ×2 (05:59)
[2019-01-12 06:19] LABS: BASOPHILS % 0.3 % (0.0-1.0); EOSINOPHILS % 0.2 % (0.0-6.0); HEMATOCRIT 26.8 % (38.2-49.6); HEMOGLOBIN 8.7 g/dL (14.0-18.0); LYMPHOCYTES # (AUTO) 0.7 (1.0-3.2); LYMPHOCYTES % 4.7 % (18.0-39.1); MEAN CORPUSCULAR HGB CONC 32.5 g/dL (31-35); MEAN CORPUSCULAR VOLUME 83.2 fL (81-99); MONOCYTES # (AUTO) 0.7 (0.2-0.8); MONOCYTES % 4.7 % (4.4-11.3); NEUTROPHILS # (AUTO) 13.3 (2.1-6.9); NEUTROPHILS % 88.2 % (38.7-80.0); PLATELET COUNT 409 x10e3/uL (140-360); RED BLOOD COUNT 3.22 x10e6/uL (4.3-5.7)
--- NOTE | 2019-01-12 06:40 | NUR ---
Recited Iv to right AC 20G x1 stick.
[2019-01-12 06:44] LABS: INR 1.13; PROTHROMBIN TIME 15.1 seconds (11.9-14.5)
[2019-01-12 06:56] LABS: ALANINE AMINOTRANSFERASE 116 IU/L (0-55); ALBUMIN 1.4 g/dL (3.5-5.0); ALBUMIN/GLOBULIN RATIO 0.3 (0.8-2.0); ALKALINE PHOSPHATASE 145 IU/L (40-150); BLOOD UREA NITROGEN 13 mg/dL (7-26); BUN/CREATININE RATIO 16 (6-25); CALCIUM 7.8 mg/dL (8.4-10.2); CHLORIDE 99 mmol/L (98-107); CREATININE, SERUM 0.83 mg/dL (0.72-1.25); EST GLOMERULAR FILTRATION RATE > 60 ML/MIN (60-); GLUCOSE 114 mg/dL (74-118); POTASSIUM 4.3 mmol/L (3.5-5.1); SODIUM 133 mmol/L (136-145)
[2019-01-12 07:09] LABS: ANION GAP 12.5 mmol/L (8-16); CARBON DIOXIDE 26 mmol/L (22-29)
[2019-01-12] MEDS ORDERED: GADOBENATE DIMEGLUMINE 1 ML IV ONE (10:34)
[2019-01-12] MEDS: NAFCILLIN SOD 2 GM/NS 100ML 100 ML IV SCH ×3 (11:00→23:35)
[2019-01-12] MEDS: BALSAM PERU/CASTOR OIL 60 GM OINT...G. TP SCH ×2 (11:20→17:33)
--- NOTE | 2019-01-12 12:30 | Progress Note ---
DATE: 01/12/2019 SUBJECTIVE: Mr. Skaggs is doing better today. However, he said he cannot move his right arm. The patient's CAT scan came today, all reviewed. His blood cultures showing MSSA. Repeat blood cultures from the 25 is still pending. PHYSICAL EXAMINATION: GENERAL: He is currently alert, oriented, does not seem to be in acute distress. VITAL SIGNS: Stable. Currently afebrile. HEENT: He is not icteric. NECK: Supple. CHEST: Clear. HEART: S1, S2. No S3, S4, or murmur. ABDOMEN: Soft. Bowel sounds present. No tenderness. EXTREMITIES: No edema. There is inflammation of the right knee. The left knee seems more prepatellar. Also, concerned about his left foot. IMPRESSION: 1. Methicillin-sensitive Staphylococcus aureus bacteremia and endothelial infection. We will discontinue Zosyn. We will discontinue vancomycin and put him on nafcillin [address] of the abdomen and pelvis noted, he has multiple abscesses. Discussed with Internal Medicine. We will proceed with IR aspiration. 2. Concern about the spine. We will get stat MRI of the spine. Concerned about this weakness, right upper extremity. Originally, I thought there was some weakness, may be pain from the shoulder joint, but now I am concerned about the cervical spine issue. 3. I think all has to do with sepsis and septic emboli. Discussed with mother. Discussed with attending. We will follow with you once bacteremia resolved, will need a PICC line for IV antibiotic. 4. Consult Neurosurgery. 5. We will discuss with Ortho. MD JACE Joy/OFELIA /[id number]
--- NOTE | 2019-01-12 13:14 | NUR ---
PT CONTINUES TO BE OFF THE UNIT FOR MRI. PATIENTS MOTHER UPDATED.
[2019-01-12] MEDS ORDERED: FENTANYL CITRATE/PF 100MCG/2 ML INJ ONE (13:28)
[2019-01-12] MEDS ORDERED: MIDAZOLAM HCL 2 MG/2 ML VIAL ONE (13:28)
--- NOTE | 2019-01-12 14:42 | Diagnostic Imaging Report ---
History: Spine infection, left buttock cellulitis, sepsis. Comparison studies: CT abdomen pelvis 01/10/2019 Technique: Thoracic spine: Sagittal T1, T2, STIR, axial T1 and T2 Lumbar spine: Sagittal T1, T2, STIR, axial T2 and spin density oblique. Postcontrast axial and sagittal T1 of the thoracic and lumbar spine Contrast: 20 cc of MultiHance Findings: Number of lumbar vertebral bodies:5. Alignment: Normal thoracic kyphosis. Normal lumbar lordosis. No scoliosis. Lower thoracic cord: Normal in signal and morphology. The tip of the conus is at T12-L1 . Soft tissues and paraspinal musculature: No T2 hyperintense inflammatory changes at the thoracic spine. Bilateral paraspinal enhancement with multiple peripherally enhancing abscesses at the iliopsoas muscles bilaterally from L2 through S1, measuring from 1.0-3.2 cm, the largest one located in the left inferior psoas muscle at L5-S1 level. Fluid intensity signal at the L2-L3 intervertebral disc with adjacent enhancement of the vertebral bodies. Partially visualized bilateral pleural effusions. Vertebrae: Low signal intensity T1 with associated enhancement at L2 and L3 vertebral bodies. No compression fractures, infection or neoplasm. Degenerative changes: Thoracic spine: Disk spaces: Normal in height and signal intensity. Disk herniations: None Spinal canal: Patent Foramina: Patent Lumbar spine: Disk spaces: Fluid intensity signal with peripheral enhancement at L2-L3. Disc degeneration with loss of T2 signal from L3 through S1 Disk herniations: Multilevel disc bulges without high-grade canal stenosis Spinal canal: No high-grade canal stenosis Foramina: Mild bilateral degenerative foraminal narrowing at L5-S1. No high-grade foraminal narrowing. IMPRESSION: Thoracic spine: 1. No acute abnormalities. Lumbar spine: 1. Osteomyelitis at L2 and L3 vertebral bodies, with associated discitis. 2. Bilateral iliopsoas myositis and abscesses as described above. 3. Mild degenerative changes without significant (moderate or severe) canal stenosis or foraminal narrowing.. Signed by: DR Jeffery Landa M.D. on 01/12/2019 2:39 PM
--- NOTE | 2019-01-12 14:54 | Diagnostic Imaging Report ---
MRI SPINE CERVICAL WOW HISTORY: Spine infection COMPARISON: Concurrent MRI of the thoracic and lumbar spine TECHNIQUE: Multiplanar, multisequence MRI examination of the cervical spine was performed before and after the administration of intravenous, gadolinium based contrast. Motion and noise artifacts obscure some details. DISCUSSION: Alignment: Slight straightening of the cervical lordosis. No scoliosis. Vertebrae: No fractures, infection or neoplasm. Cervicomedullary junction: No abnormalities. Spinal cord: Grossly normal in signal and morphology from the foramen magnum through T2-T3. Soft tissues: A 1.1 cm STIR hyperintense, peripherally enhancing collection along the supraspinous ligament at the C6 level is associated with diffuse paraspinal muscle edema, right greater than left. Mild lower cervical disc degeneration is present without gross canal or foraminal stenosis. IMPRESSION: 1. Approximately 1.1 cm peripherally enhancing, STIR hyperintense collection along the supraspinous ligament at C6 may be a small abscess. There is local paraspinal muscle edema, right greater than left. No definite local osseous involvement. No extension into the spinal canal. 2. Mild lower cervical disc degeneration. No gross canal or foraminal stenosis. Signed by: Dr. Jacob Lezama M.D. on 01/12/2019 2:51 PM
[2019-01-12] MEDS ORDERED: LIDOCAINE HCL 1% LOCAL INJ 20 ML VIAL ONE (14:57)
--- NOTE | 2019-01-12 15:43 | Diagnostic Imaging Report ---
EXAMINATION: CHEST XRAY LINE PLACEMENT INDICATION: Line placement COMPARISON: None FINDINGS: LINES/TUBES:Left PICC line terminates in the superior vena cava. LUNGS:The lungs are well-inflated. No focal consolidation or pulmonary edema. PLEURA:No pleural effusion or pneumothorax. MEDIASTINUM:The cardiomediastinal silhouette appears normal in size and shape. BONES/SOFT TISSUES:No acute osseous injury. ABDOMEN:No free air under the diaphragm. IMPRESSION: Left PICC line terminates in the superior vena cava. No focal pneumonia or pulmonary edema. Signed by: Aleida Dixon MD on 01/12/2019 3:40 PM
--- NOTE | 2019-01-12 17:07 | Diagnostic Imaging Report ---
TECHNIQUE: Magnetic resonance imaging of the RIGHT Shoulder was performed WITHOUT intravenous contrast. COMPARISON: None. FINDINGS: Study is limited by motion artifact related to patient's inability to remain still during the exam. Rotator cuff: The supraspinatus, infraspinatus, teres minor and subscapularis tendons are intact. Mild muscle edema involving the supraspinatus and infraspinatus with fluid tracking along the inferior aspect of the supraspinatus myotendinous junction and muscle body. Glenohumeral joint: Moderate glenohumeral joint effusion. There is no displaced labral tear. The biceps tendon is in the groove. AC joint: Mild degenerative changes of the acromioclavicular joint. Articular Cartilage: The articular cartilage is of normal thickness. No focal defects are seen. Bone: No acute fracture or abnormal marrow edema. No loss of normal fatty marrow signal to suggest osteomyelitis. Extensive subcutaneous soft tissue edema. IMPRESSION: Moderate glenohumeral joint effusion. Mild muscle edema involving the supraspinatus and infraspinatus. Extensive subcutaneous soft tissue edema. No focal soft tissue abscess. No fracture, marrow edema, or evidence of osteomyelitis. Signed by: Aleida Dixon MD on 01/12/2019 5:03 PM
--- NOTE | 2019-01-12 17:28 | NUR ---
Nutrition Screen Note RD Recommendation for Physician: -Advance to regular diet when medically appropriate Plan of Care: RD following, monitoring for tolerance and adequacy Nutrition reason for involvement: Length of stay Primary Diagnose(s): cellulitis of left foot and gluteal cellulitis PMH: speech impediment with mild developmental delay Ht: 76 in Wt: 254 lb BMI: 30.9 kg/m2 IBW:[address] Assessment: (01/12/19) Chart reviewed. Labs and meds reviewed. Pt was not available at time of visit and there were no family members present; therefore, nutrition information was obtained from chart. Pt is currently NPO today and was previously on a regular diet. When pt was on a diet, he was consuming 75-100% of meals per chart. Will continue to monitor. Current Diet: NPO Malnutrition Evaluation (01/12/19) The patient does not meet criteria for a specified degree of malnutrition at this time. Will re-evaluate at follow-up as appropriate. Diet Education Needs Assessment: Diet education not indicated. Nutrition Care Level: low Signed: Lavern Tavarez, RD, LD
[2019-01-12] MEDS: ENOXAPARIN SOD INJ 40 MG/0.4 ML SYR SC SCH (17:34)
--- NOTE | 2019-01-12 17:36 | Diagnostic Imaging Report ---
PROCEDURE: Fluid collection aspiration Procedural Personnel Attending physician(s): Aleida Dixon MD Fellow physician(s): None Resident physician(s): None Advanced practice provider(s): None Pre-procedure diagnosis: Psoas abscess Post-procedure diagnosis: Same Indication: Bilateral psoas fluid collections Additional clinical history: None Complications: No immediate complications. IMPRESSION: Percutaneous aspiration of left psoas fluid collection, yielding 15 mL of purulent fluid. No drainage catheter was left in place. Plan: Fluid sample sent for gram stain and fluid culture. Collections are too small for indwelling percutaneous drain placement. PROCEDURE SUMMARY: - Aspiration of fluid collection under CT guidance - Additional procedure(s): None PROCEDURE DETAILS: Pre-procedure Consent: Informed consent for the procedure including risks, benefits and alternatives was obtained and time-out was performed prior to the procedure. Preparation: The site was prepared and draped using maximal sterile barrier technique including cutaneous antisepsis. Anesthesia/sedation Level of anesthesia/sedation: No sedation Anesthesia/sedation administered by: Independent trained observer under attending supervision with continuous monitoring of the patient?s level of consciousness and physiologic status Fluid collection aspiration The patient was positioned prone. Initial imaging was performed. Local anesthesia was administered. The fluid collection was accessed using an 18 gauge needle. Position within the fluid collection was confirmed, and fluid aspiration was performed. All instruments were then removed. - Initial imaging findings: Left greater than right psoas fluid collections - Aspiration needle/catheter: 18 gauge Chiba - Post-aspiration imaging findings: Near-complete drainage of the fluid collection Contrast Contrast agent: None Contrast volume (mL): [address] dose length product (mGy-cm): 1161.9 Additional Details Additional description of procedure: None Equipment details: None Specimens removed: Aspirated fluid was sent for analysis. Estimated blood loss (mL): Less than 10 Standardized report: [id number] Attestation Signer name: Aleida Dixon MD I attest that I was present for the entire procedure. I reviewed the stored images and agree with the report as written. Signed by: Aleida Dixon MD on 01/12/2019 5:33 PM
--- NOTE | 2019-01-12 18:46 | NUR ---
REPORT GIVEN TO LYNNETTE LEMONS IN ICU AT THIS TIME. PT TO TRANSFER TO ROOM 193.
--- NOTE | 2019-01-12 19:30 | NUR ---
RECEIVED FROM [employer], AWAKE AND ALERT, NO C/O PAIN OR DISCOMFORT. RESP EVEN AND UNLABORED ON ROOM AIR. AGRICULTURAL MECHANIC SHOWS ST AT 103 BPM. CELLULITIS NOTED TO BILATERAL KNEES. DRSG TO GLUTEAL I&D SITE C/D/I
[2019-01-12] MEDS: ZOLPIDEM TARTRATE 10 MG TAB PO PRN (21:53)
--- NOTE | 2019-01-12 22:32 | Consultation ---
DATE OF CONSULTATION: 01/12/2019 REASON FOR CONSULTATION: Lumbar diskitis. HISTORY OF PRESENT ILLNESS: The patient is a 53-year-old man with mild mental retardation, who had been ambulatory up until three weeks ago, since which time he has become progressively nonambulating. He was admitted to the hospital several days ago with low back pain, left hip and leg pain, bilateral knee pain, and right shoulder pain. Workup revealed sepsis with methicillin sensitive Staph aureus. CT of the abdomen revealed bilateral psoas abscesses. MRI of the lumbar thoracic and cervical spine was performed today and I was consulted. MRIs of the knees and right shoulder are pending at this time. PHYSICAL EXAMINATION: On examination, the patient is alert and oriented. His mental status is at his baseline with moderate intellectual deficit. Cranial nerves are intact. Motor strength is normal in the left arm. He refuses to move the right arm because of severe shoulder pain and restriction of shoulder movement both upon active and passive attempts at movement. The shoulder joint is moderately tender to palpation. He is able to lift his legs only about 2 inches off the bed for just a few seconds due to bilateral hip and low back pain. Deep tendon reflexes are 1+ and symmetric throughout. Plantar responses are flexor. There is no sensory deficit. IMAGING PROCEDURE: MRI of the lumbar spine reveals L1-2 diskitis with alteration of signal intensity on T1 and T2 weighted images within the disk space, associated with enhancement of the adjacent endplates. There is no significant destruction of the endplates at this point, and no epidural abscess. He also has bilateral psoas abscesses. MRIs of the thoracic and cervical spine are normal. IMPRESSION: L2-3 diskitis and associated bilateral psoas abscesses. PLAN: The patient will undergo CT-guided aspiration of psoas abscesses by Interventional Radiology today. We will plan to proceed with the L2-3 diskectomy tomorrow to clean out the disk space and to maximize his chance of responding to intravenous antibiotic treatment. He does not have significant cauda equina compression. I suspect his bilateral leg weakness is due to back pain and bilateral knee pain. MRIs of the knee are pending at this point. Furthermore, the right shoulder pain and immobility is not neurological in bases as he does not have any significant pathology in the cervical spine. MRI of the shoulder is pending at this time. The risks, benefits, and alternatives were explained to the patient and his mother in great detail and informed consent was obtained for surgery tomorrow. Kemar Martinez MD PP/OFELIA /[id number]
--- NOTE | 2019-01-12 23:00 | NUR ---
Received patient hemodynamically stable, no complaints raised, NPO, preparing to sleep
[2019-01-13] VITALS (12 sets, daily range): BP systolic 118–141; BP diastolic 63–79
--- NOTE | 2019-01-13 02:00 | NUR ---
Patient calmly asleep, no complaints raised. vitals stable
[2019-01-13] MEDS: NAFCILLIN SOD 2 GM/NS 100ML 100 ML IV SCH ×4 (05:00→23:29)
[2019-01-13 05:13] LABS: BASOPHILS % 0.2 % (0.0-1.0); EOSINOPHILS # (AUTO) 0.1 (0.0-0.4); EOSINOPHILS % 0.6 % (0.0-6.0); LYMPHOCYTES # (AUTO) 1.1 (1.0-3.2); LYMPHOCYTES % 8.3 % (18.0-39.1); MEAN CORPUSCULAR VOLUME 84.5 fL (81-99); MONOCYTES # (AUTO) 0.8 (0.2-0.8); MONOCYTES % 5.9 % (4.4-11.3); NEUTROPHILS # (AUTO) 10.7 (2.1-6.9); NEUTROPHILS % 83.4 % (38.7-80.0); PLATELET COUNT 421 x10e3/uL (140-360); RED BLOOD COUNT 2.96 x10e6/uL (4.3-5.7); RED CELL DISTRIBUTION WIDTH 17.1 % (11.7-14.4)
[2019-01-13 05:38] LABS: ALANINE AMINOTRANSFERASE 126 IU/L (0-55); ALBUMIN 1.3 g/dL (3.5-5.0); ALBUMIN/GLOBULIN RATIO 0.3 (0.8-2.0); ALKALINE PHOSPHATASE 134 IU/L (40-150); ANION GAP 12.2 mmol/L (8-16); BLOOD UREA NITROGEN 14 mg/dL (7-26); BUN/CREATININE RATIO 17 (6-25); CALCIUM 7.7 mg/dL (8.4-10.2); CARBON DIOXIDE 27 mmol/L (22-29); CHLORIDE 100 mmol/L (98-107); CREATININE, SERUM 0.83 mg/dL (0.72-1.25); EST GLOMERULAR FILTRATION RATE > 60 ML/MIN (60-); GLUCOSE 109 mg/dL (74-118); POTASSIUM 4.2 mmol/L (3.5-5.1); SODIUM 135 mmol/L (136-145)
--- NOTE | 2019-01-13 07:08 | NUR ---
patient handed over stable
--- NOTE | 2019-01-13 07:33 | NUR ---
Pt transferred from [facility] to ICU for higher level of care and will be placed on PT hold. Will need new orders to resume skilled PT when appropriate. Thank you. Addendum: 01/13/19 at 0735 by PRIYA LEGGETT PTA Amended: Links added.
[2019-01-13] MEDS: BALSAM PERU/CASTOR OIL 60 GM OINT...G. TP SCH ×2 (09:00→17:52)
[2019-01-13] MEDS ORDERED: BENZOCAINE 20% SPR 60 ML CAN ONE (12:17)
--- NOTE | 2019-01-13 13:00 | NUR ---
1230 - pt received for LIA, placed on bedside monitoring. pt positioned for procedure. IV site patent to left brachial (PICC), VS stable , NSR rhythm 1238 - hurricaine spray (spray 1) to oral cavity by haley under supervision 1242 - all responsible staff present, Timeout performed 1245 - bite block positioned and LIA probe passed 1248 - LIA probe removed , no gross trauma or distress observed 1255 - pt taken to ICU 195 for further recovery. bedside report given to Priyanka CHURCH
[2019-01-13] MEDS ORDERED: BUPIVACAINE 0.5%/EPI 30 ML SDV INJ ONE (14:13)
[2019-01-13] MEDS ORDERED: THROMBIN FOR SOLN 5,000 UNIT VIAL ONE (14:13)
[2019-01-13] MEDS ORDERED: BACITRACIN 50,000 UNIT VIAL ONE (14:14)
[2019-01-13] MEDS ORDERED: SUGAMMADEX SODIUM 200 MG/2 ML VIAL IV ONE (15:54)
[2019-01-13] MEDS ORDERED: FENTANYL CITRATE/PF 100MCG/2 ML INJ ONE ×2 (16:37→18:13)
[2019-01-13] MEDS ORDERED: SODIUM CHLORIDE 0.9% 1000ML 1,000 ML ONE (16:40)
[2019-01-13] MEDS: ENOXAPARIN SOD INJ 40 MG/0.4 ML SYR SC SCH (17:00)
--- NOTE | 2019-01-13 17:46 | Consultation ---
DATE OF CONSULTATION: 01/13/2019 Cardiology Consultation INDICATION: Endocarditis. HISTORY OF PRESENT ILLNESS: Mr. Skaggs is an unfortunate 53-year-old gentleman, who comes in with Staph aureus bacteremia as well as multiple joint inflammation. He was started with an infected gluteal abscess from a heating pad. PAST MEDICAL HISTORY: Mild speech and developmental delay. ALLERGIES: NO KNOWN DRUG ALLERGIES. SOCIAL HISTORY: The patient does not smoke or drink. He works at [employer]. REVIEW OF SYSTEMS: Negative except as dictated in the history of present illness. PHYSICAL EXAMINATION: VITAL SIGNS: Temperature 100.3, heart rate 103, blood pressure is 112/73, O2 sats 94%. CARDIOVASCULAR: Regular rhythm, systolic murmur. No gallops. LUNGS: Clear to auscultation bilaterally. ABDOMEN: Soft, bowel sounds are adequate. LABORATORY DATA: CT scan of the abdomen and pelvis and multiple MRIs reviewed. Telemetry shows sinus rhythm/sinus tachycardia. WBC count is 12,800, hemoglobin 8, platelets of 421,000. Serum creatinine is normal. Echocardiogram transthoracic was also reviewed. ASSESSMENT: Methicillin sensitive Staph aureus bacteremia. RECOMMENDATIONS: Transesophageal echocardiogram to evaluate for valvular vegetations. Risks, benefits and alternatives of this procedure were discussed with the patient as well as his mother. They are agreeable for the same. I thank, Dr. Ceballos, for this consultation. MD TIGRE Ross/OFELIA /[id number]
[2019-01-13] MEDS: GUAIFENESIN 200 MG/10 ML UDC PO SCH (20:45)
--- NOTE | 2019-01-13 23:07 | Operative Report ---
DATE OF PROCEDURE: 01/07/2019 SURGEON: Kemar Martinez MD PREOPERATIVE DIAGNOSIS: L2-3 diskitis. POSTOPERATIVE DIAGNOSIS: L2-3 diskitis. PROCEDURE: Left L2-3 laminotomy, medial facetectomy, and evacuation of disk abscess. ANESTHESIA: General. INDICATIONS: The patient is a 53-year-old man, who presents with L2-3 diskitis in the setting of methicillin-sensitive Staph aureus bacteremia and disseminated infections. He was taken to the operating room for left L2-3 laminotomy and microsurgical diskectomy and evacuation of disk abscess. PROCEDURE IN DETAIL: After induction of general anesthesia, the patient was placed on the operating table in prone position over Sharad frame. The lumbar region was prepped and draped in sterile fashion. A preoperative x-ray was obtained. A 1-inch midline incision was created over the L2-L3 segment. The lumbar fascia was opened in the left of midline and dissection was carried out to expose the left-sided L2 and L3 lamina and the medial aspect of the L2-L3 facet joint. A second x-ray confirmed correct localization. The operating microscope was brought in. A high-speed drill equipped with tanmay bur was used to drill the anterior aspect of lamina of L2 and a medial rim of the inferior articular process of L2. The medial rim of the superior articular process of L3 was also drilled away. The ligamentum flavum was resected and the dural sac and the L3 nerve roots were exposed. The nerve root was retracted medially. The annulus of the disk was incised with a #11 blade. Immediately, a large amount of thin yellow pus under some pressure extruded from the disk space. This was cultured. A micropituitary rongeur was then used to remove the liquified disk from the disk space. The disk was also curetted away and cleaned out. The disk space was then thoroughly irrigated with 1 L of bacitracin saline solution injected into the disk space through a microsuction catheter and a 50 mL syringe. A small Hemovac drain was then placed into the disk space and brought out through a separate stab incision. The wound was also irrigated with bacitracin solution and closed in multiple layers with 0 and 2-0 Vicryl sutures. The skin was closed with 3-0 Monocryl sutures in subcuticular fashion. Steri-Strips and dressing were applied. The patient was awakened, extubated, and taken to postanesthesia care unit in stable condition. No intraoperative complications were encountered. ESTIMATED BLOOD LOSS: 10 mL. Kemar Martinez MD PP/OFELIA /[id number]
[2019-01-14] VITALS (12 sets, daily range): BP systolic 114–142; BP diastolic 59–79
[2019-01-14] MEDS: ALBUTEROL SULF 0.083% NEB SOLN 3 ML NEB NEB SCH ×3 (00:18→13:00)
[2019-01-14] MEDS: ZOLPIDEM TARTRATE 10 MG TAB PO PRN (00:33)
[2019-01-14] MEDS: HYDROMORPHONE 1MG/1ML INJ IV PRN (01:30)
[2019-01-14] MEDS: NAFCILLIN SOD 2 GM/NS 100ML 100 ML IV SCH ×4 (04:59→23:45)
[2019-01-14 05:23] LABS: BASOPHILS % 0.2 % (0.0-1.0); EOSINOPHILS # (AUTO) 0.1 (0.0-0.4); EOSINOPHILS % 0.8 % (0.0-6.0); HEMATOCRIT 25.1 % (38.2-49.6); HEMOGLOBIN 7.9 g/dL (14.0-18.0); LYMPHOCYTES # (AUTO) 1.1 (1.0-3.2); LYMPHOCYTES % 8.6 % (18.0-39.1); MEAN CORPUSCULAR HEMOGLOBIN 26.9 pg (28-32); MEAN CORPUSCULAR HGB CONC 31.5 g/dL (31-35); MEAN CORPUSCULAR VOLUME 85.4 fL (81-99); MONOCYTES # (AUTO) 0.6 (0.2-0.8); MONOCYTES % 4.9 % (4.4-11.3); NEUTROPHILS # (AUTO) 10.8 (2.1-6.9); NEUTROPHILS % 84.6 % (38.7-80.0); PLATELET COUNT 447 x10e3/uL (140-360); RED BLOOD COUNT 2.94 x10e6/uL (4.3-5.7); RED CELL DISTRIBUTION WIDTH 17.2 % (11.7-14.4)
[2019-01-14 05:53] LABS: ALANINE AMINOTRANSFERASE 90 IU/L (0-55); ALBUMIN 1.3 g/dL (3.5-5.0); ALBUMIN/GLOBULIN RATIO 0.3 (0.8-2.0); ALKALINE PHOSPHATASE 113 IU/L (40-150); ANION GAP 13.3 mmol/L (8-16); BLOOD UREA NITROGEN 15 mg/dL (7-26); BUN/CREATININE RATIO 19 (6-25); CALCIUM 7.7 mg/dL (8.4-10.2); CARBON DIOXIDE 25 mmol/L (22-29); CHLORIDE 102 mmol/L (98-107); EST GLOMERULAR FILTRATION RATE > 60 ML/MIN (60-); GLUCOSE 100 mg/dL (74-118); POTASSIUM 4.3 mmol/L (3.5-5.1); SODIUM 136 mmol/L (136-145)
--- NOTE | 2019-01-14 06:21 | Diagnostic Imaging Report ---
EXAMINATION: CHEST SINGLE (PORTABLE) INDICATION: Cough, congestion. COMPARISON: Chest radiograph 01/12/2019. FINDINGS: TUBES and LINES: Left PICC terminates in the upper SVC. LUNGS: Low lung volumes. There are perihilar and interstitial opacities. Patchy opacities of the right lung base. PLEURA: No pleural effusion or pneumothorax. HEART AND MEDIASTINUM: The cardiomediastinal silhouette is unremarkable. BONES AND SOFT TISSUES: No acute osseous abnormality. UPPER ABDOMEN: No free air under the diaphragm. IMPRESSION: Low lung volumes, cannot exclude mild pulmonary interstitial edema. Patchy opacities at the right lung base, which may reflect atelectasis, although pneumonia is possible in the appropriate clinical setting. Signed by: Dr. Karissa Blanco MD on 01/14/2019 6:17 AM
[2019-01-14] MEDS: BALSAM PERU/CASTOR OIL 60 GM OINT...G. TP SCH ×2 (08:10→16:59)
[2019-01-14] MEDS: GUAIFENESIN 200 MG/10 ML UDC PO SCH ×2 (08:10→16:59)
--- NOTE | 2019-01-14 08:45 | NUR ---
Report given to LYNNETTE Steele for 188. Patient transferred to Room 188 via bed.
--- NOTE | 2019-01-14 10:29 | Progress Note ---
DATE: 01/14/2019 Cardiology Progress Note SUBJECTIVE: No acute events. Denies any complaints. OBJECTIVE: VITAL SIGNS: Temperature is 98.5, heart rate is 97, respirations are 20, blood pressure is 142/69, ox saturation 99% on room air. GENERAL: Well appearing, no apparent distress. CARDIOVASCULAR: Regular rate and rhythm. LUNGS: Clear to auscultation. ABDOMEN: Soft, nontender, nondistended. EXTREMITIES: No edema. MEDICATIONS: Reviewed. LABORATORY DATA: Reviewed. Transesophageal echocardiogram showed preserved left ventricular systolic function with no valvular vegetations. IMPRESSION: Staph aureus bacteremia. RECOMMENDATIONS: His transesophageal echocardiogram showed no evidence of valvular vegetations. Otherwise has a stable cardiac status. No further cardiac workup is required. Please call back for further questions. DO KARI Elias/MODL /[id number]
--- NOTE | 2019-01-14 11:40 | NUR ---
Dr Lombardo notified of consult.
[2019-01-14] MEDS ORDERED: GADOBENATE DIMEGLUMINE 1 ML IV ONE (12:16)
--- NOTE | 2019-01-14 14:31 | Progress Note ---
DATE: 01/14/2019 SUBJECTIVE: Mr. Skaggs is feeling better. No new complaint. He had a surgery yesterday of his spine. He said he cannot lift up his right upper extremity because there was some pain apparently in the elbow. There was no fever, no chills. The patient underwent the following procedure L2-L3 laminectomy and evacuation of disk abscess on January 13. The patient had a LIA showed no vegetation. The patient is currently lying in bed comfortably with no complaints. His mother at the bedside. REVIEW OF SYSTEMS: There is nothing new. All his joint seems to be better. He still has some pain in both knees. The ankle also seems to be better. On his lab, he is growing Staph aureus from his wound on January 13 and on January 12 from fluid. The repeated blood cultures on negative. He had left psoas abscess aspirated. LABORATORY DATA: White count is 12.78, hemoglobin 7.9, and his platelet is 447. Sodium 136 and potassium 4.3. PHYSICAL EXAMINATION: GENERAL: He is currently alert, oriented, does not seem to be in acute distress. VITAL SIGNS: Stable, currently afebrile. He had a T-max of 100.1 on . HEENT: Not icteric. NECK: Supple. CHEST: Clear. HEART: S1 and S2. No murmur. ABDOMEN: Soft. Bowel sounds present. No tenderness. EXTREMITIES: The knee, there is some minimal effusion noted in the patellar spaces. He still cannot lift up his right arm. The ankle also seems to be better. IMPRESSION AND PLAN: Sepsis with bacteremia, MSSA, severe with multiple abscesses. We will treat his endocarditis with septic emboli. An extended course of IV antibiotic as needed. He is currently on nafcillin. He is status post drain of spinal abscess, status post drain of psoas abscess. Concerned about the shoulder joint, we will discuss with Dr. Benedict. Also, about the knees, we will discuss with Dr. Benedict if we should aspirate. Weakness of the upper extremity, we will consult Neurology to rule out neuropathy. Ankle infection, we are waiting on the MRI today. We will follow with you. Thank you for asking me to see this patient. MD JACE Joy/OFELIA /[id number]
--- NOTE | 2019-01-14 15:24 | NUR ---
MRI complete and patient in procedure now to have shoulder drained.
[2019-01-14] MEDS ORDERED: LIDOCAINE HCL 1% LOCAL INJ 20 ML VIAL ONE (15:35)
--- NOTE | 2019-01-14 16:02 | Diagnostic Imaging Report ---
TECHNIQUE: Magnetic resonance imaging of the LEFT foot was performed without and with injected contrast. 20 mL of MultiHance. HISTORY: Cellulitis COMPARISON: None available. DISCUSSION: Soft tissue swelling of the left foot. 3 cm rim-enhancing fluid collection overlying the first metatarsal. Bone marrow signal is normal. No edema or T1 replacement. Degenerative arthrosis of the midfoot articulations. IMPRESSION: Cellulitis/swelling of the left foot with a 3 cm abscess overlying the dorsal first metatarsal. No osteomyelitis. Signed by: Dr. Von Higginbotham M.D. on 01/14/2019 3:58 PM
--- NOTE | 2019-01-14 16:05 | Diagnostic Imaging Report ---
TECHNIQUE: Magnetic resonance imaging of the RIGHT KNEE was performed without and with injected contrast. 20 mL of MultiHance HISTORY: Infection COMPARISON: None available. FINDINGS: Soft tissue swelling and edema predominantly involving the anterior portion of the knee. Ill-defined nonenhancing and phlegmon measuring approximately 1.5 x 0.4 cm present on postcontrast axial image 14. Small knee joint effusion. No finding of septic joint. The knee ligaments are intact. No meniscal tear. IMPRESSION: Cellulitis/edema predominantly involving the anterior knee with linear ill-defined phlegmon anterolaterally. No finding of septic arthritis or osteomyelitis Signed by: Dr. Von Higginbotham M.D. on 01/14/2019 4:02 PM
--- NOTE | 2019-01-14 16:08 | NUR ---
Dr Lombardo here waiting for patient to return for one hour. will visit patient saturday.
[2019-01-14 16:57] LABS: BODY FLUID APPEARANCE SL.CLOUDY; BODY FLUID COLOR YELLOW; BODY FLUID TYPE ABCESS
[2019-01-14 16:58] LABS: RBC,BODY FLUID 204 cells/uL; WBC,BODY FLUID 2461 cells/uL
[2019-01-14] MEDS: ENOXAPARIN SOD INJ 40 MG/0.4 ML SYR SC SCH (16:59)
--- NOTE | 2019-01-14 17:35 | Diagnostic Imaging Report ---
Right upper extremity ultrasound, with ultrasound-guided aspiration. History: Right shoulder joint effusion. Discussion: Transverse and longitudinal sonographic imaging of the right true was performed. Right shoulder joint effusion is identified anteriorly. EBL: < 1 cc. Specimen: 2 cc of thick yellow fluid, sample sent to laboratory for analysis. After informed consent was obtained, the patient's shoulder was prepped and draped in a sterile fashion. The skin was anesthetized with 1% lidocaine without epinephrine. Using ultrasound guidance, an 18-gauge spinal needle was advanced into the right anterior glenohumeral joint. Fluid was aspirated and the needle was removed. The patient tolerated procedure well without evidence of immediate complication. IMPRESSION: 1. Shoulder ultrasound demonstrating right glenohumeral joint effusion anteriorly. 2. Successful ultrasound-guided aspiration of right shoulder joint effusion. Signed by: Rodrick Tom on 01/14/2019 5:32 PM
[2019-01-14] MEDS ORDERED: SEVOFLURANE INHAL SOLN 250 ML PEN BTL ONE (18:00)
[2019-01-14] MEDS ORDERED: ONDANSETRON HCL INJ 2MG/ML 2ML 2 MG/ML VIAL ONE (18:00)
[2019-01-14] MEDS ORDERED: ACETAMINOPHEN 1000 MG/100 ML IV ONE (18:00)
[2019-01-14] MEDS ORDERED: PROPOFOL IV EMULSION 10 MG/ML 20 ML VIAL ONE ×2 (18:00→18:04)
[2019-01-14] MEDS ORDERED: GLYCOPYRROLATE INJ 1MG/ 5 ML SYR ONE (18:00)
[2019-01-14] MEDS ORDERED: NEOSTIGMINE 5 MG/5ML SYR ONE (18:00)
[2019-01-14] MEDS ORDERED: DEXAMETHASONE SOD PHOS INJ 4 MG/ML VIAL ONE (18:00)
[2019-01-14] MEDS ORDERED: PHENYLEPHRINE HCL 1% 10 MG/ML VIAL ONE (18:00)
[2019-01-14] MEDS ORDERED: ROCURONIUM BROMIDE 10 MG/ML 5ML VIAL ONE (18:00)
[2019-01-14] MEDS ORDERED: LIDOCAINE HCL 2% LOCAL INJ 5 ML SDV VIAL INJ ONE ×2 (18:00→18:04)
[2019-01-14 18:15] LABS: LYMPHOCYTES,BODY FLUID 4 %; NEUTROPHILS,BODY FLUID 96 %
[2019-01-14] MEDS: ACETAMINOPHEN 325 MG TAB PO PRN (19:46)
--- NOTE | 2019-01-14 20:10 | NUR ---
patient in bed, had low deg fever, tylenol prn given. no distress noted, vitals checked, will continue to monitor.
[2019-01-15] VITALS (7 sets, daily range): BP systolic 119–155; BP diastolic 60–86
[2019-01-15] MEDS: ACETAMINOPHEN 325 MG TAB PO PRN ×2 (02:44→12:27)
[2019-01-15] MEDS: NAFCILLIN SOD 2 GM/NS 100ML 100 ML IV SCH ×4 (05:21→22:22)
[2019-01-15 06:06] LABS: BASOPHILS % 0.3 % (0.0-1.0); EOSINOPHILS # (AUTO) 0.1 (0.0-0.4); EOSINOPHILS % 0.7 % (0.0-6.0); HEMATOCRIT 24.8 % (38.2-49.6); HEMOGLOBIN 7.9 g/dL (14.0-18.0); LYMPHOCYTES # (AUTO) 1.2 (1.0-3.2); LYMPHOCYTES % 12.8 % (18.0-39.1); MEAN CORPUSCULAR HEMOGLOBIN 27.1 pg (28-32); MEAN CORPUSCULAR HGB CONC 31.9 g/dL (31-35); MEAN CORPUSCULAR VOLUME 85.2 fL (81-99); MONOCYTES # (AUTO) 0.5 (0.2-0.8); MONOCYTES % 5.5 % (4.4-11.3); NEUTROPHILS # (AUTO) 7.8 (2.1-6.9); NEUTROPHILS % 80.1 % (38.7-80.0); PLATELET COUNT 458 x10e3/uL (140-360); RED BLOOD COUNT 2.91 x10e6/uL (4.3-5.7); RED CELL DISTRIBUTION WIDTH 17.1 % (11.7-14.4)
[2019-01-15 06:28] LABS: ALANINE AMINOTRANSFERASE 76 IU/L (0-55); ALBUMIN 1.3 g/dL (3.5-5.0); ALBUMIN/GLOBULIN RATIO 0.3 (0.8-2.0); ALKALINE PHOSPHATASE 101 IU/L (40-150); ANION GAP 11.1 mmol/L (8-16); BLOOD UREA NITROGEN 12 mg/dL (7-26); BUN/CREATININE RATIO 16 (6-25); CALCIUM 7.9 mg/dL (8.4-10.2); CARBON DIOXIDE 27 mmol/L (22-29); CHLORIDE 102 mmol/L (98-107); CREATININE, SERUM 0.74 mg/dL (0.72-1.25); EST GLOMERULAR FILTRATION RATE > 60 ML/MIN (60-); GLUCOSE 108 mg/dL (74-118); POTASSIUM 4.1 mmol/L (3.5-5.1); SODIUM 136 mmol/L (136-145)
--- NOTE | 2019-01-15 07:00 | NUR ---
Pt received resting in bed. Alert and oriented x2 with right arm weakness. Oriented to staff and surroundings. Encouraged to press call rodriguez if help needed. Emotional support given. Double lumen PICC line patent in left upper arm. Will monitor
[2019-01-15] MEDS: ALBUTEROL SULF 0.083% NEB SOLN 3 ML NEB NEB SCH ×3 (07:30→20:38)
[2019-01-15] MEDS: BALSAM PERU/CASTOR OIL 60 GM OINT...G. TP SCH ×2 (08:38→16:15)
[2019-01-15] MEDS: GUAIFENESIN 200 MG/10 ML UDC PO SCH ×2 (08:38→16:15)
--- NOTE | 2019-01-15 14:33 | Progress Note ---
DATE: 01/15/2019 Cardiology Progress Note SUBJECTIVE: No major events overnight. OBJECTIVE: VITAL SIGNS: Temperature afebrile, pulse 99, respiratory rate 22, blood pressure 119/72, and saturating 98% on 2 liters. GENERAL: Well developed, well nourished, in no acute distress. CARDIOVASCULAR: Regular rate and rhythm. No murmurs, rubs, or gallops. LUNGS: Clear to auscultation bilaterally. ABDOMEN: Soft, nontender, and nondistended. NEUROLOGIC AND PSYCHIATRIC: Alert and oriented to person, placed, and time. Normal affect. INPATIENT MEDICATIONS: Reviewed. LABORATORY DATA: Reviewed. TELEMETRY DATA: Reviewed, shows normal sinus rhythm. ASSESSMENT/PLAN: Staphylococcus aureus bacteremia. Transesophageal echocardiography was performed, showed no vegetations, no evidence of endocarditis. Doing well otherwise from cardiovascular standpoint. We will continue to monitor. Infection seems to be improving. Transfused p.r.n. per primary team for anemia. Thank you for this consult. We will continue to follow. MD IGNACIA Ibarra/OFELIA /[id number]
--- NOTE | 2019-01-15 15:46 | NUR ---
Pt had Tympanic temp 101. Recheck orally was 99.7. Dr. Li notified. Orders received. Will monitor
[2019-01-15] MEDS: HYDROCODONE/APAP 5MG-325MG TAB PO PRN ×2 (16:15→22:12)
[2019-01-16] VITALS (7 sets, daily range): BP systolic 119–162; BP diastolic 70–76
[2019-01-16] MEDS: ALBUTEROL SULF 0.083% NEB SOLN 3 ML NEB NEB SCH ×4 (01:00→19:45)
[2019-01-16] MEDS: NAFCILLIN SOD 2 GM/NS 100ML 100 ML IV SCH ×4 (05:21→22:44)
--- NOTE | 2019-01-16 05:58 | Diagnostic Imaging Report ---
EXAMINATION: CHEST SINGLE (PORTABLE) INDICATION: Cough, query pneumonia. COMPARISON: Chest radiograph 01/14/2019. FINDINGS: TUBES and LINES: Left PICC terminates in the upper SVC. LUNGS: Low lung volumes. There are perihilar and interstitial opacities. Patchy bibasilar opacities. PLEURA: No pleural effusion or pneumothorax. HEART AND MEDIASTINUM: The cardiomediastinal silhouette is unremarkable. BONES AND SOFT TISSUES: No acute osseous abnormality. UPPER ABDOMEN: No free air under the diaphragm. IMPRESSION: Low lung volumes, cannot exclude mild pulmonary interstitial edema. Patchy bibasilar opacities, likely atelectasis. Signed by: Dr. Karissa Blanco MD on 01/16/2019 5:53 AM
[2019-01-16 06:11] LABS: BASOPHILS # (AUTO) 0.1 (0.0-0.1); BASOPHILS % 0.4 % (0.0-1.0); EOSINOPHILS # (AUTO) 0.1 (0.0-0.4); HEMATOCRIT 24.9 % (38.2-49.6); HEMOGLOBIN 7.7 g/dL (14.0-18.0); LYMPHOCYTES # (AUTO) 1.3 (1.0-3.2); LYMPHOCYTES % 11.3 % (18.0-39.1); MEAN CORPUSCULAR HEMOGLOBIN 26.7 pg (28-32); MEAN CORPUSCULAR HGB CONC 30.9 g/dL (31-35); MEAN CORPUSCULAR VOLUME 86.5 fL (81-99); MONOCYTES # (AUTO) 0.7 (0.2-0.8); MONOCYTES % 5.8 % (4.4-11.3); NEUTROPHILS % 80.9 % (38.7-80.0); PLATELET COUNT 533 x10e3/uL (140-360); RED BLOOD COUNT 2.88 x10e6/uL (4.3-5.7); RED CELL DISTRIBUTION WIDTH 17.3 % (11.7-14.4)
[2019-01-16 06:42] LABS: ALANINE AMINOTRANSFERASE 83 IU/L (0-55); ALBUMIN 1.4 g/dL (3.5-5.0); ALBUMIN/GLOBULIN RATIO 0.3 (0.8-2.0); ALKALINE PHOSPHATASE 101 IU/L (40-150); ANION GAP 12.9 mmol/L (8-16); BLOOD UREA NITROGEN 12 mg/dL (7-26); BUN/CREATININE RATIO 16 (6-25); CALCIUM 8.1 mg/dL (8.4-10.2); CARBON DIOXIDE 26 mmol/L (22-29); CHLORIDE 100 mmol/L (98-107); CREATININE, SERUM 0.74 mg/dL (0.72-1.25); EST GLOMERULAR FILTRATION RATE > 60 ML/MIN (60-); GLUCOSE 105 mg/dL (74-118); POTASSIUM 3.9 mmol/L (3.5-5.1); SODIUM 135 mmol/L (136-145)
--- NOTE | 2019-01-16 08:25 | NUR ---
ORDERS FOR LTAC ON 01/14 CHOICE LETTER SIGNED MOT INITIATED AND PLACED ON CHART [facility] WITH [facility] NOTIFIED OF EVAL
[2019-01-16] MEDS: BALSAM PERU/CASTOR OIL 60 GM OINT...G. TP SCH ×2 (09:46→17:11)
[2019-01-16] MEDS: GUAIFENESIN 200 MG/10 ML UDC PO SCH ×2 (09:46→17:00)
[2019-01-16] MEDS ORDERED: SODIUM CHLORIDE 0.9% 250ML 250 ML ONE (10:20)
[2019-01-16] MEDS: CEFEPIME 1GM/NS 0.9% 50 ML 50 ML IV SCH ×2 (10:30→20:45)
[2019-01-16] MEDS: HYDROCODONE/APAP 5MG-325MG TAB PO PRN ×2 (11:27→20:28)
--- NOTE | 2019-01-16 12:44 | NUR ---
Patient's Hemovac removed using suture removal kit, no visible suture material remaining in patient's skin
[2019-01-16] MEDS ORDERED: ONDANSETRON HCL 4 MG ORAL DISINTEGRATING TAB PO PRN (17:30)
--- NOTE | 2019-01-16 19:52 | NUR ---
Received change of shift report from AM nurse. Walking rounds completed.
[2019-01-17] VITALS (7 sets, daily range): BP systolic 111–156; BP diastolic 59–80
[2019-01-17] MEDS: ALBUTEROL SULF 0.083% NEB SOLN 3 ML NEB NEB SCH ×4 (01:00→19:30)
--- NOTE | 2019-01-17 01:00 | NUR ---
Patient c/o of pain. Pain med given as ordered by MD.
--- NOTE | 2019-01-17 03:00 | NUR ---
Patient resting quitly at this time. Patient Had large, soft and brown.
[2019-01-17] MEDS: HYDROCODONE/APAP 5MG-325MG TAB PO PRN (03:02)
[2019-01-17] MEDS: NAFCILLIN SOD 2 GM/NS 100ML 100 ML IV SCH ×4 (05:00→23:46)
--- NOTE | 2019-01-17 05:21 | NUR ---
Blood drawn from PICC line and sent to lab. PICC line flushed with 10cc NS.
[2019-01-17 05:40] LABS: BASOPHILS % 0.4 % (0.0-1.0); EOSINOPHILS # (AUTO) 0.1 (0.0-0.4); EOSINOPHILS % 1.1 % (0.0-6.0); HEMATOCRIT 25.2 % (38.2-49.6); HEMOGLOBIN 7.9 g/dL (14.0-18.0); LYMPHOCYTES # (AUTO) 1.2 (1.0-3.2); LYMPHOCYTES % 12.1 % (18.0-39.1); MEAN CORPUSCULAR HGB CONC 31.3 g/dL (31-35); MONOCYTES # (AUTO) 0.7 (0.2-0.8); MONOCYTES % 6.7 % (4.4-11.3); NEUTROPHILS # (AUTO) 8.1 (2.1-6.9); NEUTROPHILS % 79.1 % (38.7-80.0); PLATELET COUNT 507 x10e3/uL (140-360); RED BLOOD COUNT 2.93 x10e6/uL (4.3-5.7); RED CELL DISTRIBUTION WIDTH 17.3 % (11.7-14.4)
[2019-01-17 06:01] LABS: ALANINE AMINOTRANSFERASE 72 IU/L (0-55); ALBUMIN 1.5 g/dL (3.5-5.0); ALBUMIN/GLOBULIN RATIO 0.3 (0.8-2.0); ALKALINE PHOSPHATASE 90 IU/L (40-150); ANION GAP 10.8 mmol/L (8-16); BLOOD UREA NITROGEN 11 mg/dL (7-26); BUN/CREATININE RATIO 15 (6-25); CALCIUM 9.2 mg/dL (8.4-10.2); CARBON DIOXIDE 26 mmol/L (22-29); CHLORIDE 101 mmol/L (98-107); CREATININE, SERUM 0.73 mg/dL (0.72-1.25); EST GLOMERULAR FILTRATION RATE > 60 ML/MIN (60-); GLUCOSE 107 mg/dL (74-118); POTASSIUM 3.8 mmol/L (3.5-5.1); SODIUM 134 mmol/L (136-145)
[2019-01-17] MEDS: GUAIFENESIN 200 MG/10 ML UDC PO SCH ×2 (09:36→17:27)
[2019-01-17] MEDS: CEFEPIME 1GM/NS 0.9% 50 ML 50 ML IV SCH ×2 (09:36→21:40)
[2019-01-17] MEDS: BALSAM PERU/CASTOR OIL 60 GM OINT...G. TP SCH ×2 (09:36→17:27)
--- NOTE | 2019-01-17 14:35 | Progress Note ---
DATE: 01/17/2019 Internal Medicine Progress Note SUBJECTIVE: The patient has no symptoms today to complain about. OBJECTIVE: VITAL SIGNS: Blood pressure 133/73, temperature is 98.2, heart rate is 103 per minute, respiratory rate 22 per minute, and oxygen saturation 95%. HEART: Showed regular rhythm. Normal S1, S2 sound. LUNGS: Clear bilaterally. ABDOMEN: Soft. EXTREMITIES: Show decreased redness on both legs. LABORATORY DATA: On the CBC, white blood count 10.27, hemoglobin 10.9, hematocrit 25.2, and platelet count 507,000. On the chemistry; sodium 134, potassium 3.8, chloride 101, CO2 of 26, BUN 11, creatinine 0.73, glucose 107, calcium 9.2, total bilirubin 0.4, AST 47, ALT 72, which is significantly improved compared to before. Total protein 6.5, albumin 1.5, globulin 5.0, and albumin globulin ratio 0.3. Toxicology; vancomycin trough is 7.9, which is low. Hepatitis profile is completely negative. Coagulation showed PT 1.1, INR 1.3, PTT 35.0. MICROBIOLOGY: Showed Staphylococcus aureus in the blood culture at the beginning on January 08, January 12. No growth in the blood culture. Gram stain in the culture show and the wound culture showed Staphylococcus aureus, which is sensitive to pretty much all antibiotics. IMAGING: We have last one a chest x-ray which showed low lung volume, cannot exclude mild pulmonary interstitial edema, patchy bibasilar opacities, likely atelectasis. MRI of the foot shows cellulitis and swelling in the left foot with a 3 mm abscess overlying the dorsal 1st metatarsal, no osteomyelitis. On the knee x-ray, on the right knee, cellulitis and edema predominantly involving the anterior knee with linear ill-defined anterolaterally. No finding of septic arthritis, osteomyelitis, we have an ultrasound of the extremities, which shows shoulder ultrasound demonstrating right no humeral joint infusion anteriorly. Successful ultrasound-guided aspiration of right shoulder joint effusion. IMPRESSION: 1. Sepsis. 2. Lumbar spine diskitis. 3. Bilateral site abscess. 4. Right lower lobe pneumonia, most likely gram-negative pneumonia. 5. Anemia of chronic disease. 6. Elevated liver function tests. PLAN OF TREATMENT: Continue with current antibiotic regimen, which includes cefepime 1 g IV twice a day, nafcillin 2 g IV four times a day, and Tylenol 650 mg q.4 hours as needed for pain or fever, albuterol q.6 hours, balsam bryan without castor oil 60 g application topically twice a day, guaifenesin 200 mg twice a day, Mousie 5/325 one tablet q.4 hours as needed for pain, Zofran 4 mg IV q.4 hours as needed for nausea and vomiting, and Zofran 4 mg oral disintegrating tablets every 4 hours as needed for nausea and vomiting. I am going to order a CMP tomorrow. The patient has been evaluated for transfer to [facility]. MD BARBARA Paez/OFELIA /[id number]
--- NOTE | 2019-01-17 16:55 | NUR ---
PT had doppler on l le = negative, pt refusing to participate due to pain, f/u on saturday Addendum: 01/17/19 at 1656 by Raul Alcantar PTA Amended: Links added.
--- NOTE | 2019-01-17 17:49 | NUR ---
RECEIVED PATIENT FROM [facility] TO ROOM 292, HE IS IN STABLE CONDITION. ORIENTED TO ROOM AND POLICIES. CALL LIGHT WITHIN REACH. BED IN THE LOWEST POSITION. BED PUMP APPLIED TO MATTRESS. BED ALARM ON.
--- NOTE | 2019-01-17 19:19 | NUR ---
BEDSIDE SHIFT REPORT GIVEN TO ONCOMING NURSE. PATIENT IS RESTING IN BED, NO ACUTE DISTRESS NOTED. FAMILY AT BEDSIDE. CALL LIGHT WITHIN REACH. BED IN THE LOWEST POSITION.
--- NOTE | 2019-01-17 20:36 | Consultation ---
DATE OF CONSULTATION: 01/16/2019 Neurology Consult HISTORY OF PRESENT ILLNESS: Mr. Skaggs is a 53-year-old left-hand dominant man with past medical history significant for mild developmental delay with speech impairment, admitted to [facility] as an inpatient on January 07, 2019, with fevers, chills, sweats, which were attributed to previously diagnosed left buttock cellulitis. Ultimately, Mr. Skaggs was determined to have Staphylococcus bacteremia with multiple abscesses throughout the body. A neurology consultation is requested due to weakness of the right arm. Mr. Skaggs reports the right arm weakness developed approximately 2 weeks ago after he had blood drawn from the antecubital fossa. Initially, the patient reports he could not move his right arm at all immediately following having his blood drawn. However, as the patient is observed to remove his right hand and forearm multiple times during the encounter, Mr. Skaggs clarifies by saying he is unable to move his right arm at the shoulder. When asked whether or not this inability to move the right arm at the shoulder is secondary to pain or weakness, the patient reports it is secondary to pain. Mr. Skaggs does not report a loss of sensation in the right hand or right arm. He does not report burning pain, tingling, pins and needles, or other uncomfortable sensation affecting the right hand or right arm. He does not report neck pain radiating distally over the right arm or hand. REVIEW OF SYSTEMS: Fever, chills, sweats, right shoulder pain, pain in the left leg, low back pain, pain at other sites around the body. Otherwise, a 12-point review of systems is negative. PAST MEDICAL HISTORY: Mild developmental delay with speech impairment. PAST SURGICAL HISTORY: None. PAST HOSPITALIZATIONS: None. FAMILY MEDICAL HISTORY: The patient's father had congestive heart failure and dementia. No other family medical history is reported. SOCIAL HISTORY: Mr. Skaggs is single. 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 The patient does not report current or prior tobacco or recreational drug use. He endorses social alcohol use. HOME MEDICATIONS: None. HOSPITAL MEDICATIONS: Reviewed. Please see the list of hospital medications available in the electronic medical record. ALLERGIES: BUFFERIN/ASPIRIN. NO KNOWN FOOD ALLERGIES. NO KNOWN ALLERGIES TO LATEX. NO KNOWN ALLERGIES TO IODINE OR OTHER CONTRAST MATERIALS. PHYSICAL EXAMINATION: VITAL SIGNS: Height 76 inches, weight 251 pounds, BMI 30.6 kg/m2, blood pressure 133/73 mmHg, pulse 103 beats per minute, respiratory rate 22 breaths per minute, and oxygen saturation 95% on room air. GENERAL: The patient is awake and alert, does not appear distressed. Obese. HEENT: Normocephalic, atraumatic. Pupils are equal, round, and sluggishly reactive to light. Moist mucous membranes. NECK: Supple. No appreciable thyromegaly. No appreciable carotid bruits. CARDIOVASCULAR: S1, S2, regular rate and rhythm. No murmurs, rubs, or gallops. RESPIRATORY: Clear to auscultation bilaterally. No wheezes, rhonchi, or rales. EXTREMITIES: The skin is warm and dry. No clubbing or cyanosis. A 2+ pretibial pitting edema is appreciated over the left lower extremity. The posterior tibial and dorsalis pedis pulses are 1+ and symmetric. SKIN: No rashes or lesions. NEUROLOGIC: Memory/Attention: The patient is awake and alert, oriented to person, place, time, and situation. Cranial Nerves: Cranial nerve I - not tested. Cranial nerve II, III, IV, and - pupils are equal and round, react sluggishly to light (from 4 mm to 2 mm). Extraocular movements intact. No nystagmus. Cranial nerve V - sensation to light touch and pinprick is intact in the bilateral V1 through V3 distributions. Strength in the temporalis and masseter muscles is within normal limits. Cranial nerve VII - the face is symmetric as are all facial movements. Strength is within normal limits. Cranial nerve VIII - hearing is intact to finger rub bilaterally. Cranial nerve IX, X - the soft palate elevates equally and symmetrically. Cranial nerve XI - normal strength of the bilateral sternocleidomastoid and trapezius muscles. Cranial nerve XII - the tongue protrudes midline and moves symmetrically from [id number]. Strength: Bulk is normal. Strength is 5/5 in the bilateral deltoids, biceps, triceps, wrist flexors and extensors, finger flexors and extensors, intrinsic hand muscles, hip flexors, knee flexors and extensors, ankle dorsiflexion and plantar flexion, and intrinsic foot muscles except as follows: Mr. Skaggs refuses to move the right upper arm secondary to pain. Therefore, strength in the right deltoid cannot be assessed. Strength in the left leg is grossly 2/5. The patient declines to move this leg secondary to pain. DTRs: Deep tendon reflexes are 2+ and symmetric at the triceps, biceps, and brachioradialis. Deep tendon reflexes are 1+ and symmetric at the patellas. Deep tendon reflexes are absent and symmetric at the Achilles. Plantar responses are flexor bilaterally. Sensation: Sensation is intact to light touch and pinprick in both arms and both legs. Cerebellar: Unable to assess secondary to lack of the patient cooperation secondary to pain. Gait: Deferred. Speech: Spontaneous speech is mildly dysarthric with some stuttering. No aphasia. Repetition is intact. Involuntary Movements: None. Pronator Drift: As per motor exam. LABORATORY DATA: The most recent comprehensive metabolic panel is significant for a sodium of 135, calcium of 8.1, AST of 55, ALT of 83, total protein 6.2, albumin of 1.4, globulin of 4.8. The most recent CBC with differential and platelets reveals a mildly elevated white blood cell count of 11.13 with a left shift with 80.9% neutrophils, 11.3% lymphocytes, 5.8% monocytes, 1.0% eosinophils, and 0.4% basophils. The hemoglobin and hematocrit are 7.7 and 24.9, respectively. The platelet count is 533. A coagulation profile performed on January 12, 2019, is significant for a mildly elevated PT of 15.1. Serum vancomycin troughs are 7.7 on 01/08/2019 and 7.9 on 01/11/2019. Fluid drained from an abscess reveals yellow, slightly cloudy fluid with 2461 white blood cells with a left shift with 96 neutrophils and 4 lymphocytes, and 204 red blood cells. A hepatitis panel collected on January 09, 2019, is negative. Blood cultures collected on January 08, 2019, grew Staphylococcus aureus. Blood cultures collected on January 12, 2019, reveal no growth after 5 days. Fluid collected from a left psoas abscess grew Staphylococcus aureus on January 12, 2019. Fluid collected from lumbar 2 and lumbar 3 on January 13, 2019, grew Staphylococcus aureus. A fluid aspirate from the right shoulder collected on January 14, 2019, reveals no growth after 3 days. DIAGNOSTIC STUDIES: Foot x-ray, 01/07/2019: No acute bony abnormality. CT abdomen and pelvis, 01/07/2019: 1. There is subcutaneous stranding and edema in the left gluteal area. Ill- defined lucencies are seen in the adjacent gluteus mazin musculature, which also appears edematous. Potentially, this may represent thermal injury based on history provided, although lucencies in the musculature may also represent phlegmonous infection in the proper clinical setting. Discrete or well defined drainable fluid collection is not seen. 2. Mildly prominent para-aortic and mesenteric lymph nodes, which may be reactive. Correlation with history for underlying related pathology is also suggested. 3. Enlargement of the prostate. 4. Echocardiogram 01/09/2019: Ejection fraction 60% to 65%. Trace tricuspid regurgitation. 5. Liver ultrasound 01/09/2019: Unremarkable right upper quadrant ultrasound. Sacrum and coccyx x-ray 01/10/2019: 1. Multiple bilateral psoas and left gluteal abscesses/myositis. Prevertebral inflammation anterior to LT-L3 disk space, and small fluid collections in the upper infrarenal retroperitoneum. Recommend lumbar spine MRI with contrast. 2. Multiple scattered subcutaneous inflammatory changes. 3. Constellation of findings concerning for septic emboli, possibly due to infected tricuspid valve, there is asymmetric right atrial enlargement. .. 4. Trace pleural effusions. MRI of lumbar spine 01/12/2019: 1. Osteomyelitis of L2 and L3 vertebral bodies, with associated diskitis. 2. Bilateral iliopsoas myositis and abscesses as described above. 3. Mild degenerative changes without significant ([id number]) canal stenosis or foraminal narrowing. MRI of the thoracic spine 01/12/2019: No acute abnormalities. MRI of the cervical spine 01/12/2019: 1. Approximately 1.1 cm peripherally enhancing, STIR hyperintense collection along the supraspinatus ligament at C3, may be a small abscess. There is local paraspinal muscle edema, right greater than left. No definite local osseous involvement. No extension into the spinal canal. 2. Mild lower cervical disk degeneration. No gross canal foraminal stenosis. 3. Shoulder MRI 01/12/2019: Moderate glenohumeral joint effusion. Mild muscle edema involving the supraspinatus and infraspinatus. Extensive subcutaneous soft tissue edema. No focal soft tissue abscess. No fracture, marrow edema, or evidence of osteomyelitis. 4. Extremity ultrasound 01/14/2019: Shoulder ultrasound demonstrating right glenohumeral joint effusion anteriorly. Successful ultrasound guided aspiration of right shoulder joint effusion. 5. Chest x-ray 01/14/2019: Low lung volumes, cannot exclude mild pulmonary interstitial edema. Patchy opacities at the right lung base, which may reflect atelectasis, although pneumonia is possible in the appropriate clinical setting. 6. Knee MRI 01/14/2019: Cellulitis/edema predominantly involving the anterior knee with linear ill-defined phlegmon anterolaterally. No finding of septic arthritis or osteomyelitis. 7. Foot MRI 01/14/2019: Cellulitis/swelling of the left foot with a 3 cm abscess overlying the dorsal 1st metatarsal. No osteomyelitis. 8. Chest x-ray 01/16/2019: Low lung volumes, cannot exclude mild pulmonary interstitial edema. Patchy bibasilar opacities, likely atelectasis. 9. Transesophageal echocardiogram: Reportedly, no evidence of bacterial endocarditis. ASSESSMENT AND PLAN: Mr. Skaggs is a 53-year-old left-hand dominant man admitted to [facility] as an inpatient on January 07, 2019, with Staphylococcus aureus bacteremia with multiple abscesses found throughout the body. A neurology consultation is requested for further evaluation and treatment of right arm weakness. On neurological examination, other than the right deltoid muscle, strength is full in all other muscles examined. Deep tendon reflexes are intact. Sensation is intact to light touch and pinprick. The findings on the remainder of the neurological examination are detailed above. The patient's laboratory data and other diagnostic studies have been reviewed and are documented above. In my opinion, Mr. Skaggs's inability to move his right arm is secondary to pain rather than weakness. Based on my neurological examination, there is no evidence of nerve or muscle injury/disease affecting the right arm. Thank you for this consultation. There are no other recommendations from the neurology service at this time. Please call again with any questions or concerns. TIME SPENT: 70 minutes. Cornelia Lombardo MD CP/OFELIA /[id number] JUAN
--- NOTE | 2019-01-17 22:10 | NUR ---
Assessment done.no resp.distress.no pain voiced.voided in urinal.bed alarm on.left upper arm picc line is patent.bed locked and in lowest position.phone and call light within reach.instructed to call for assistance as needed.
[2019-01-17] MEDS: ACETAMINOPHEN 325 MG TAB PO PRN (23:59)
[2019-01-18] VITALS (8 sets, daily range): BP systolic 113–143; BP diastolic 57–74
[2019-01-18] MEDS: ALBUTEROL SULF 0.083% NEB SOLN 3 ML NEB NEB SCH ×4 (00:11→19:50)
[2019-01-18] MEDS: NAFCILLIN SOD 2 GM/NS 100ML 100 ML IV SCH ×4 (05:00→23:00)
[2019-01-18 06:36] LABS: ALANINE AMINOTRANSFERASE 78 IU/L (0-55); ALBUMIN 1.5 g/dL (3.5-5.0); ALBUMIN/GLOBULIN RATIO 0.3 (0.8-2.0); ALKALINE PHOSPHATASE 87 IU/L (40-150); ANION GAP 12.6 mmol/L (8-16); BLOOD UREA NITROGEN 10 mg/dL (7-26); BUN/CREATININE RATIO 14 (6-25); CALCIUM 8.5 mg/dL (8.4-10.2); CARBON DIOXIDE 27 mmol/L (22-29); CHLORIDE 104 mmol/L (98-107); CREATININE, SERUM 0.74 mg/dL (0.72-1.25); EST GLOMERULAR FILTRATION RATE > 60 ML/MIN (60-); GLUCOSE 105 mg/dL (74-118); POTASSIUM 3.6 mmol/L (3.5-5.1); SODIUM 140 mmol/L (136-145)
--- NOTE | 2019-01-18 06:58 | NUR ---
RECEIVED BEDSIDE SHIFT REPORT FROM OFF GOING NURSE. PATIENT IS IN STABLE CONDITION. DENIES PAIN OR DISCOMFORT AT THIS TIME. CALL LIGHT WITHIN REACH. BED IN THE LOWEST POSITION.
--- NOTE | 2019-01-18 06:58 | NUR ---
Bed side shift report given to the oncoming Rn.stable condition.
[2019-01-18] MEDS: CEFEPIME 1GM/NS 0.9% 50 ML 50 ML IV SCH ×2 (08:23→21:23)
[2019-01-18] MEDS: BALSAM PERU/CASTOR OIL 60 GM OINT...G. TP SCH ×2 (08:23→15:47)
[2019-01-18] MEDS: GUAIFENESIN 200 MG/10 ML UDC PO SCH ×2 (08:23→17:33)
--- NOTE | 2019-01-18 13:35 | Progress Note ---
DATE: 01/18/2019 Internal Medicine Progress Note SUBJECTIVE: The patient is doing better. PHYSICAL EXAMINATION: HEART: Showed regular rhythm. Normal S1 and S2 sound. LUNGS: Clear bilaterally. EXTREMITIES: Show no evidence of cyanosis or hematoma. VITAL SIGNS: Show blood pressure 138/72, temperature 97.2, heart rate 95 per minute, respiratory rate 18 per minute, and oxygen saturation 95%. LABORATORY DATA: On the BMP; sodium 140, potassium 3.6, chloride 104, CO2 27, BUN 10, creatinine 0.74, and glucose 105. On the CBC; white blood count 10.2, hemoglobin 7.9, hematocrit 25.2, and platelet count 507,000. PT 15.1, INR 1.13, and PTT is 35.0. AST 60, ALT 78, total bilirubin 0.4, and alkaline phosphatase 57. FINAL IMPRESSION: 1. Sepsis. 2. Lumbar spine diskitis. 3. Bilateral thigh abscesses with cellulitis. 4. Right lower lobe pneumonia, most likely gram-negative pneumonia. 5. Anemia of chronic disease. 6. Elevated LFTs. 7. Back pain. PLAN OF TREATMENT: Continue with albuterol q.6 hours, nafcillin q.6 hours, cefepime twice a day, Balsam Fallentimber/castor oil 60 g application twice a day, Zofran 4 mg IV q.4 hours as needed for nausea and vomiting, guaifenesin 200 mg twice a day as needed for cough, Tylenol 650 mg q.4 hours as needed for pain or fever, [place] 1 tablet q.4 hours as needed for more severe pain, and Lidoderm patch 12 hours on, 12 hours off as needed for back pain. Physical and occupational therapy have been started. Also, the patient is going to be referred to [facility] for possible transfer if approved by insurance. MD BARBARA Paez/OFELIA /[id number]
[2019-01-18] MEDS: HYDROCODONE/APAP 5MG-325MG TAB PO PRN (13:47)
--- NOTE | 2019-01-18 16:20 | NUR ---
Visit made by the Spiritual Care Department Pastoral Visitor, Juan Carlos Dia. PV provided pastoral presence, prayer, hospitality, communion, and supportive listening. Pastoral Visitor informed pt/family of the scope of Director Of [employer] and availability. TITI KENNEDY Door Installer Spiritual Care Department O: [phone] Pager: [phone] ([phone] number calling from)
[2019-01-18 17:51] LABS: FERRITIN 458.82 ng/mL (21.81-274.66)
--- NOTE | 2019-01-18 19:15 | NUR ---
patient received awake, alert, lying quietly in bed. no c/o pain noted. left upper arm picc line dressing c,d,i. pm assessment complete. call rodriguez placed within reach. patient instructed to call for assistance when needed.
[2019-01-19 00:32] VITALS: BP 129/60
[2019-01-19] MEDS: ALBUTEROL SULF 0.083% NEB SOLN 3 ML NEB NEB SCH ×3 (01:00→13:08)
[2019-01-19] MEDS: HYDROCODONE/APAP 5MG-325MG TAB PO PRN (01:00)
--- NOTE | 2019-01-19 01:00 | NUR ---
patient medicated for bilateral leg pain 5/10 per orders at this time.
[2019-01-19] MEDS: NAFCILLIN SOD 2 GM/NS 100ML 100 ML IV SCH ×3 (05:00→17:01)
--- NOTE | 2019-01-19 05:00 | NUR ---
am labs drawn from left upper arm picc line without difficulty at this time.
--- NOTE | 2019-01-19 05:09 | Progress Note ---
DATE: 01/14/2019 CHIEF COMPLAINT: Right shoulder pain. SUBJECTIVE: The patient is a 53-year-old male, who we previously saw on 01/08/2019 for left wrist pain. 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 We are now being asked to see the patient for right shoulder pain. He now has an extended hospitalization for methicillin sensitive Staph aureus bacteremia with multiple joint involvement. His main complaint is right shoulder pain. He states he has trouble moving the arm without any discomfort. He states he cannot raise up the arm. OBJECTIVE: GENERAL: The patient is in no apparent distress. He is awake, alert, and oriented appropriately. He does not appear systemically ill. EXTREMITIES: Examination of the right shoulder shows no evidence of swelling or erythema. He has markedly limited active range of motion, attempts of passive range of motion were painful. Distal neurovascular exam is normal. IMAGING DATA: MRI of the right shoulder was reviewed and showed a moderate effusion. ASSESSMENT AND PLAN: This is a 53-year-old male with a history of methicillin sensitive Staph aureus bacteremia with recent L2-L3 diskitis and bilateral psoas abscesses, which have been treated with diskectomy and irrigation and debridement, now concern for a septic right shoulder. I would recommend that Interventional Radiology do an ultrasound-guided aspiration of the right shoulder. The aspirate should be sent for cell count, anaerobic and aerobic cultures as well as sensitivities. This has already been ordered by Dr. Ceballos with Infectious Disease. We will await culture results and treat accordingly. We will continue to follow. Dictated by Ehsan Lyle PA-C MD JAYLA Orr/OFELIA /[id number]
[2019-01-19 05:35] VITALS: BP 129/78
[2019-01-19 05:39] LABS: BASOPHILS # (AUTO) 0.1 (0.0-0.1); BASOPHILS % 0.6 % (0.0-1.0); EOSINOPHILS # (AUTO) 0.1 (0.0-0.4); EOSINOPHILS % 1.2 % (0.0-6.0); HEMATOCRIT 24.5 % (38.2-49.6); HEMOGLOBIN 7.5 g/dL (14.0-18.0); LYMPHOCYTES # (AUTO) 1.2 (1.0-3.2); LYMPHOCYTES % 14.3 % (18.0-39.1); MEAN CORPUSCULAR HEMOGLOBIN 26.4 pg (28-32); MEAN CORPUSCULAR HGB CONC 30.6 g/dL (31-35); MEAN CORPUSCULAR VOLUME 86.3 fL (81-99); MONOCYTES # (AUTO) 0.8 (0.2-0.8); MONOCYTES % 9.3 % (4.4-11.3); PLATELET COUNT 464 x10e3/uL (140-360); RED BLOOD COUNT 2.84 x10e6/uL (4.3-5.7); RED CELL DISTRIBUTION WIDTH 17.3 % (11.7-14.4)
[2019-01-19 06:02] LABS: ALANINE AMINOTRANSFERASE 94 IU/L (0-55); ALBUMIN 1.5 g/dL (3.5-5.0); ALBUMIN/GLOBULIN RATIO 0.3 (0.8-2.0); ALKALINE PHOSPHATASE 80 IU/L (40-150); ANION GAP 9.6 mmol/L (8-16); BLOOD UREA NITROGEN 10 mg/dL (7-26); BUN/CREATININE RATIO 13 (6-25); CALCIUM 8.3 mg/dL (8.4-10.2); CARBON DIOXIDE 28 mmol/L (22-29); CHLORIDE 100 mmol/L (98-107); CREATININE, SERUM 0.76 mg/dL (0.72-1.25); EST GLOMERULAR FILTRATION RATE > 60 ML/MIN (60-); GLUCOSE 110 mg/dL (74-118); POTASSIUM 3.6 mmol/L (3.5-5.1); SODIUM 134 mmol/L (136-145)
[2019-01-19 07:35] VITALS: BP 134/61
[2019-01-19] MEDS: GUAIFENESIN 200 MG/10 ML UDC PO SCH ×2 (08:50→16:39)
[2019-01-19] MEDS: CEFEPIME 1GM/NS 0.9% 50 ML 50 ML IV SCH (08:51)
[2019-01-19 08:54] VITALS: BP 134/61
[2019-01-19] MEDS: BALSAM PERU/CASTOR OIL 60 GM OINT...G. TP SCH ×2 (08:56→17:01)
[2019-01-19] MEDS ORDERED: LIDOCAINE 4% PATCH TP SCH (09:00)
--- NOTE | 2019-01-19 09:49 | Diagnostic Imaging Report ---
Chest, PA and lateral. History: Pneumonia. Comparison: 01/16/2019. Impression: The heart is within normal limits of size. Left upper extension of the PICC tip terminates in the distal SVC. There is no focal consolidation, sizable pleural effusion, or pneumothorax Signed by: Sheldon Sotelo MD on 01/19/2019 9:45 AM
--- NOTE | 2019-01-19 10:07 | Progress Note ---
DATE: 01/19/2019 HISTORY OF PRESENT ILLNESS: This is a 53-year-old white man whose primary treating diagnosis is Methicillin sensitive Staphylococcus aureus bacteremia and right lower lobe pneumonia. He also has anemia secondary to chronic disease. During this hospitalization, the patient underwent left L2-L3 laminectomy with evacuation of disk abscess. The patient also underwent a transesophageal echocardiogram during this hospitalization, which did not reveal any valvular vegetations consistent with endocarditis. The patient voices no complaints. REVIEW OF SYSTEMS: As per HPI. PHYSICAL EXAMINATION: GENERAL: He is awake, alert and fully oriented. He is very pleasant on exam. He does have a speech impediment, but this is his baseline. VITAL SIGNS: His highest temperature at 8:00 p.m. on 01/18/2019 was 100.4 degrees Fahrenheit, currently it is 97.9 degrees, heart rate is 90, respiratory rate 18, oxygen saturation 99% on room air, blood pressure 134/62. BMI is 30 INTEGUMENT: Skin is warm and dry. No pallor, jaundice or diaphoresis. HEENT: Anterior sclerae with moist mucous membranes. NECK: Supple. CARDIOVASCULAR: Tachycardic rate, regular rhythm. LUNG: Decreased breath sounds at the bases bilaterally. ABDOMEN: Obese, benign. EXTREMITIES: No edema or deformity. NEUROLOGIC: Intact. No gross focal deficit appreciated. DIAGNOSES: 1. Methicillin sensitive Staphylococcus aureus bacteremia. 2. L2-L3 diskitis. 3. Status post left L2-L3 laminectomy with disk abscess evacuation. 4. Right lower lobe pneumonia. 5. Anemia secondary to chronic disease. 6. Bilateral psoas abscess. 7. Left buttock abscess. PLAN: 1. Continue intravenous nafcillin for the patient's methicillin sensitive Staphylococcus aureus bacteremia. 2. Continue intravenous cefepime for his pneumonia. 3. Follow up complete blood count. 4. Mobilize with physical therapy. 5. Continue enoxaparin for deep venous thrombosis prophylaxis. 6. Repeat chest x-ray. 7. Long-term acute care evaluation has been ordered and we are awaiting acceptance. I spent 30 minutes in the care of the patient. MD LIBIA Lewis/OFELIA /[id number] JUAN
--- NOTE | 2019-01-19 12:30 | NUR ---
Patient up in bed, eating lunch, no distress noted
[2019-01-19] MEDS: ACETAMINOPHEN 325 MG TAB PO PRN (15:15)
[2019-01-19 16:20] VITALS: BP 160/80
--- NOTE | 2019-01-19 17:36 | NUR ---
MOT REC'D FOR [facility] [address] ABEL CHAVIRA ADMITTING CALLING DR CHAVIRA FOR DC ORDERS PLAN TRANSFER THIS EVENING ASKED NURSE SINGLETON TO FAX MOT TO [phone]
--- NOTE | 2019-01-19 17:54 | NUR ---
Report called to Lorraine CHURCH in [facility]. House sup notified
[2019-01-19] MEDS ORDERED: CEFAZOLIN SOD 2 GM/D5W 50ML 50 ML IV SCH (18:00)
--- NOTE | 2019-01-19 19:15 | NUR ---
patient received awake, alert, lying quietly in bed. no c/o pain noted. pm assessment complete. mother remains at the bedside. patient is to discharge to [facility]. patient/mother verbalizes understanding of this. waiting for ambulance for transport.
--- NOTE | 2019-01-19 20:00 | NUR ---
patient discharged to [facility] via ambulance at this time. vss and no c/o pain noted at this time.
[2019-01-19] MEDS ORDERED: CEFAZOLIN SOD 1 GM/NS 50ML 250 ML IV SCH (22:00)
--- NOTE | 2019-01-21 03:30 | Discharge Summary ---
ADMIT DIAGNOSES: 1. Sepsis secondary to left buttock cellulitis. 2. Acute renal insufficiency secondary to acute tubular necrosis. 3. Left wrist dislocation. DISCHARGE DIAGNOSES: 1. Sepsis secondary to methicillin sensitive Staphylococcus bacteremia. 2. Lumbar spine diskitis. 2. Status post L2-L3 laminectomy with disk abscess drainage/evacuation. 3. Left buttock abscess, resolving. 4. Left psoas muscle abscess. Status post left psoas muscle abscess drainage. 5. Right-sided pneumonia likely gram-negative yasmin. 6. Anemia secondary to chronic disease. 7. Elevated hepatic transaminases, likely secondary to fatty liver disease. HOSPITAL COURSE: This is a 53-year-old white man, who was initially admitted to [facility] diagnosis sepsis secondary to left buttock cellulitis and acute renal insufficiency that was thought to be secondary to acute tubular necrosis. During this hospitalization, he was found to have methicillin-sensitive Staphylococcus aureus bacteremia. During hospital stay, he underwent transthoracic and transesophageal echocardiogram that did not reveal any evidence of valvular vegetations consistent with endocarditis. The Interventional Radiology successfully drained the left psoas muscle abscess which also grew methicillin sensitive Staphylococcus aureus bacterial species. Moreover, during hospitalization patient was seen by a neurosurgeon for his lumbar spine diskitis. The patient underwent L2-L3 laminectomy/diskectomy with disk abscess drainage/evacuation. This spinal surgery performed by Dr. Kemar Martinez. During this hospitalization the patient was seen by Infectious Disease specialist, Dr. Ceballos because of his Staphylococcus aureus bacteremia. The patient did improve clinically with intravenous nafcillin. The patient was started on intravenous cefepime for his right-sided pneumonia. Decision was made to transfer patient to a long-term acute care facility namely [facility], where he could receive an intravenous antibiotic therapy for his methicillin sensitive Staphylococcus aureus bacteremia and lumbar spine diskitis as well as his left psoas muscle abscess. Also at the long-term acute care facility, the patient received intravenous antibiotics for his pneumonia as well as receive daily physician visits for his multiple medical comorbidities. During hospitalization the patient underwent a hepatitis panel which was negative. CONDITION ON DISCHARGE: Stable. DISCHARGE MEDICATIONS: 1. Nafcillin 1 g intravenous every 6 hours. 2. Cefepime 1 g intravenous every 12 hours. 3. Albuterol nebulizer treatments every 6 hours. 4. Guaifenesin 200 mg b.i.d. 5. Enoxaparin 40 mg subcutaneous daily. 6. Ondansetron 4 mg by mouth every 4 hours p.r.n. nausea vomiting. 7. Acetaminophen 650 mg every 6 hours for fever/pain. 8. [place] 5/325 one pill every 4 hours moderate to severe pain. FOLLOWUP INSTRUCTIONS: As previously stated the patient was transferred to a local long-term acute care facility where he will be followed by his attending namely myself, Dr. Markel Li. MD LIBIA Lewis/CLEML /[id number] cc: MD Jane Quintero MD
== END 2019-01-19 20:07 | DRG 853 ==
LOC: FSED 16:05 → ERHOLD 16:54 → MED/SURG3 20:10 → ICU 01-12 18:53 → IMCU 01-14 09:35 → MED/SURG3 01-17 17:40
PROVIDERS: ADMIT Internal Medicine; ATTEND Internal Medicine
PROC: 0SB20ZZ Excision of Lumbar Vertebral Disc, Open Approach (ICD-10-PCS; principal; 2019-01-07)
PROC: 01NB0ZZ Release Lumbar Nerve, Open Approach (ICD-10-PCS; 2019-01-07)
PROC: 0K9P30Z Drainage of Left Hip Muscle with Drainage Device, Percutaneous Approach (ICD-10-PCS; 2019-01-12)
PROC: 0K9N3ZZ Drainage of Right Hip Muscle, Percutaneous Approach (ICD-10-PCS; 2019-01-12)
PROC: 02HV33Z Insertion of Infusion Device into Superior Vena Cava, Percutaneous Approach (ICD-10-PCS; 2019-01-12)
PROC: 0R9J3ZX Drainage of Right Shoulder Joint, Percutaneous Approach, Diagnostic (ICD-10-PCS; 2019-01-14)
DX: A41.02 Sepsis due to Methicillin resistant Staphylococcus aureus (principal); N17.0 Acute kidney failure with tubular necrosis; K68.12 Psoas muscle abscess; J15.6 Pneumonia due to other Gram-negative bacteria; L03.317 Cellulitis of buttock; D63.8 Anemia in other chronic diseases classified elsewhere; M46.46 Discitis, unspecified, lumbar region; R62.50 Unspecified lack of expected normal physiological development in childhood; M25.411 Effusion, right shoulder; S63.095A Other dislocation of left wrist and hand, initial encounter; W20.8XXA Other cause of strike by thrown, projected or falling object, initial encounter; Y93.89 Activity, other specified; Y92.512 Supermarket, store or market as the place of occurrence of the external cause
CPT/HCPCS: 10009; 10160; 36415; 36569; 71045; 71046; 72020; 72156; 72157; 72158; 74177; 74470; 76705; 76882; 76942; 77012; 80048; 80053; 80202; 82248; 82390; 82550; 82728; 83540; 83605; 84550; 85025; 85610; 85730; 86255; 87040; 87070; 87071; 87075; 87186; 87205; 88112; 88304; 88312; 89051; 93306; 93307; 93312; 93325; 93971; 94640; 97139; J0690; J0692; J1100; J1170; J1650; J2001; J2250; J2370; J2405; J2543; J3010; J3370; J7030; J7050; Q9967

== ENCOUNTER → 2019-01-07 | Outpatient (CLI) | payer OTHER ==
--- NOTE | 2019-01-07 10:56 | Diagnostic Imaging Report ---
EXAMINATION: WRIST LEFT 2 VIEWS INDICATION: Left wrist sprain COMPARISON: None FINDINGS: No acute fracture. There is widening of the scapholunate interval to 5.3 mm. Alignment is otherwise anatomic. The soft tissues appear unremarkable. IMPRESSION: Scapholunate interval widening to 5.3 mm, consistent with scapholunate dissociation. Signed by: Aleida Dixon MD on 01/07/2019 10:53 AM
== END ==
LOC: RAD 09:52
PROVIDERS: ATTEND Internal Medicine
DX: S63.502A Unspecified sprain of left wrist, initial encounter (principal)

== ENCOUNTER → 2021-12-08 | Outpatient (CLI) | payer BC | LOC: MRI 07:45 | PROVIDERS: ATTEND Internal Medicine | DX: M54.42 Lumbago with sciatica, left side (principal); M51.36 Other intervertebral disc degeneration, lumbar region | CPT/HCPCS: 72148 ==

== ENCOUNTER → 2022-01-09 | Outpatient (CLI) | payer BC | LOC: RAD 12:58 | PROVIDERS: ATTEND Internal Medicine | DX: M25.562 Pain in left knee (principal) ==